=== PATIENT | female | born 1980 | race Caucasian/White ===

== ENCOUNTER 2021-07-23 13:18 | Inpatient (IN) | payer SELFPAY ==
[2021-07-23] MEDS ORDERED: SODIUM CHLORIDE 0.9% 1000 ML IV SOLN IV ONE (13:37)
[2021-07-23] MEDS ORDERED: IBUPROFEN 800 MG TAB PO ONE (13:39)
--- NOTE | 2021-07-23 13:39 | Event Note ---
ED Screening Note ED Screening Note: COUGH FEVER PMH NONE RX NONE NO COVID IMMUNIZATION NO FLU SHOT This initial assessment/diagnostic orders/clinical plan/treatment(s) is/are subject to change based on patients health status, clinical progression and re- assessment by fellow clinical providers in the ED. Further treatment and workup at subsequent clinical providers discretion. Patient/guardian urged not to elope from the ED as their condition may be serious if not clinically assessed and managed. Initial orders include: RO COVID - FLU
[2021-07-23 14:02] LABS: Basophils % (Auto) 0.4 % (0.0-1.8); Hematocrit 41.5 % (30.3-42.9); Lymphocytes # (Auto) 0.8 K/mm3 (1.2-5.4); Lymphocytes % (Auto) 25.9 % (13.4-35.0); Mean Corpuscular HGB Conc 34 % (30-34); Mean Corpuscular Volume 88 fl (79-97); Monocytes # (Auto) 0.1 K/mm3 (0.0-0.8); Monocytes % (Auto) 4.9 % (0.0-7.3); Platelet Count 185 K/mm3 (140-440); Red Blood Count 4.73 M/mm3 (3.65-5.03); Red Cell Distribution Width 13.2 % (13.2-15.2)
[2021-07-23 14:26] LABS: Alanine Aminotransferase 33 units/L (7-56); Albumin 3.8 g/dL (3.9-5); Blood Urea Nitrogen 5 mg/dL (7-17); Calcium 8.5 mg/dL (8.4-10.2); Hemolysis Index 11
[2021-07-23 14:30] LABS: BUN/Creatinine Ratio 10
[2021-07-23 14:50] LABS: Bilirubin,Urine NEG (Negative); Blood,Urine NEG (Negative); Color,Urine Yellow (Yellow); Hyaline Casts,Urine 2 /LPF; Mucus,Urine FEW /HPF; Urobilinogen,Urine < 2.0 mg/dL (<2.0); WBC,Urine < 1.0 /HPF (0.0-6.0)
--- NOTE | 2021-07-23 15:06 | XRay Report ---
CHEST 2 VIEWS INDICATION: SOB. COMPARISON: None FINDINGS: Support devices: None. Heart: Within normal limits. Lungs/pleura: Moderate diffuse bilateral lung opacities are identified. No pleural effusion or pneum othorax. Additional findings: None. IMPRESSION: Moderate bilateral pulmonary opacities concerning for atypical pneumonia or viral infection. Signer Name: Khoa Patel Jr, MD Signed: 07/23/2021 3:01 PM Workstation Name: [id number]
--- NOTE | 2021-07-23 15:46 | Emergency Department Report ---
ED General Adult HPI - General Chief complaint: Fever Stated complaint: DIFFICULTY BREATING Time Seen by Provider: 07/23/21 13:37 Source: patient, family Mode of arrival: Ambulatory Limitations: Language Barrier - History of Present Illness Initial comments: 41-year-old female with past medical history of hypertension diagnosed with COVID 10 days ago presents emerged department complaining of a 7-day history of progressive worsening shortness of breath, chills, coryza, presyncope coughing with mucus production and diarrhea the last couple days. She has been highly treated self with fluids and Pedialyte, Gatorade, [id number] Tyleno l and and Motrin but states when she was diagnosed with COVID no further medication was was provided. She is continuing to worsen since since the onset Severity scale (0 -10): 7 - Related Data Allergies Allergy/AdvReac Type Severity Reaction Status Date / Time No Known Allergies Allergy Verified 07/23/21 13:24 ED Review of Systems ROS: Stated complaint: DIFFICULTY BREATING Other details as noted in HPI Comment: All other systems reviewed and negative ED Physical Exam - General Limitations: Language Barrier General appearance: alert, lethargic - Head Head exam: Present: atraumatic, normocephalic - Eye Eye exam: Present: normal appearance - ENT ENT exam: Present: normal exam, normal orophraynx, mucous membranes moist - Neck Neck exam: Present: normal inspection - Respiratory Respiratory exam: Present: normal lung sounds bilaterally, respiratory distress, rhonchi. Absent: wheezes, rales - Cardiovascular Cardiovascular Exam: Present: normal rhythm, tachycardia. Absent: systolic murmur, diastolic murmur, rubs, gallop - GI/Abdominal GI/Abdominal exam: Present: soft, normal bowel sounds. Absent: tenderness, guarding - Extremities Exam Extremities exam: Present: normal inspection - Back Exam Back exam: Present: normal inspection - Neurological Exam Neurological exam: Present: alert, oriented X3 - Psychiatric Psychiatric exam: Present: normal affect, normal mood - Skin Skin exam: Present: warm, dry, intact, normal color. Absent: rash ED Course Vital Signs 07/23/21 13:19 Temperature 101.9 F H Pulse Rate 115 H Respiratory 20 Rate Blood Pressure 140/78 [Left] O2 Sat by Pulse 94 Oximetry - Consultations Consultation #1: 07/23/21 17:56 Case discussed with attending who is aware of the findings on examination and CT scan. Plan is to admit for further evaluation and treatment. Consultation #2: 07/23/21 17:56 Case discussed with hospitalist Dr. Jocelyn Schultz who is aware of the findings on examination and CT scans plan is to admit to [facility] per his recommendation ED Medical Decision Making - Lab Data Result diagrams: 07/23/21 13:43 07/23/21 13:43 - Radiology Data Radiology results: report reviewed [facility] [address] [place] [address] Cat Scan Report Signed Patient: MARTA MELÉNDEZ R#: [id number] : 1980 Acct:[id number] Age/Sex: 41 / F ADM Date: 07/23/21 Loc: ED Attending Dr: Ordering Physician: RAMYA MCKEON Date of Service: 07/23/21 Procedure(s): CT angio chest Accession Number(s): [id number] cc: RAMYA MCKEON CTA CHEST WITH CONTRAST INDICATION / CLINICAL INFORMATION: CP/SOB. TECHNIQUE: Axial CT images were obtained through the chest after injection of 100 cc of Omnipaque 350 IV contrast. 3 plane MIP and/or 3D reconstructions were produced. All CT scans at this location are performed using CT dose reduction for ALARA by means of automated exposure control. COMPARISON: Same day chest radiograph FINDINGS: PULMONARY ARTERIES: No central or segmental pulmonary embolus. THORACIC AORTA: No significant abnormality. HEART: No significant abnormality. ADENOPATHY: No significant adenopathy. LUNGS/PLEURA: Moderate patchy bilateral airspace consolidation, most pronounced within the right upper lobe. Trace bibasilar pleural effusions. No pneumothorax. ADDITIONAL FINDINGS: Small sliding-type hiatal hernia. UPPER ABDOMEN: No acute findings. SKELETAL STRUCTURES: No significant osseous abnormality. IMPRESSION: 1. No evidence of central or segmental pulmonary embolism. 2. Moderate patchy bilateral airspace consolidation, most consistent with multifocal pneumonia. Signer Name: Magdi Salter MD Signed: 07/23/2021 5:32 PM Workstation Name: [id number] Transcribed By: JS Dictated By: MAGDI SALTER MD Electronically Authenticated By: MAGDI SALTER MD Signed Date/Time: 07/23/211731 DD/ 28 TD/TT: Print Cancel - Medical Decision Making This patient presents to the emergency department with fever and lower respiratory symptoms concerning for viral syndrome including flu and COVID-19. Patient has documented COVID-19 10 days ago and currently has a pneumonia which is suspicious to be secondary toCOVID-19 infection. Differential diagnosis includes other viral causes of lower respiratory symptoms, asthma, bronchitis. Patient has progressive symptoms and concerning vital signs as well as desaturation down to 88 with ambulation and worsening symptoms of shortness of breath and the addition of presyncope for this reason it is in the best interest for admission for further evaluation and treatment of the pneumonia Critical care attestation.: If time is entered above; I have spent that time in minutes in the direct care of this critically ill patient, excluding procedure time. ED Disposition Clinical Impression: Bilateral upper lobe community acquired pneumonia, Hypoxemia Disposition: ADMITTED INPATIENT Is pt being admited?: Yes Does the pt Need Aspirin: No Condition: Stable Instructions: Bacterial Pneumonia (ED)
--- NOTE | 2021-07-23 17:36 | Cat Scan Report ---
CTA CHEST WITH CONTRAST INDICATION / CLINICAL INFORMATION: CP/SOB. TECHNIQUE: Axial CT images were obtained through the chest after injection of 100 cc of Omnipaque 350 IV contrast. 3 plane MIP and/or 3D reconstructions were produced. All CT scans at this location are performed using CT dose reduction for ALARA by means of automated exposure control. COMPARISON: Same day chest radiograph FINDINGS: PULMONARY ARTERIES: No central or segmental pulmonary embolus. THORACIC AORTA: No significant abnormality. HEART: No significant abnormality. ADENOPATHY: No significant adenopathy. LUNGS/PLEURA: Moderate patchy bilateral airspace consolidation, most pronounced within the right uppe r lobe. Trace bibasilar pleural effusions. No pneumothorax. ADDITIONAL FINDINGS: Small sliding-type hiatal hernia. UPPER ABDOMEN: No acute findings. SKELETAL STRUCTURES: No significant osseous abnormality. IMPRESSION: 1. No evidence of central or segmental pulmonary embolism. 2. Moderate patchy bilateral airspace consolidation, most consistent with multifocal pneumonia. Signer Name: Huang Salter MD Signed: 07/23/2021 5:32 PM Workstation Name: [id number]
[2021-07-23] MEDS ORDERED: dexAMETHasone 4 MG/ML VIAL IV ONE (17:49)
[2021-07-23] MEDS ORDERED: AZITHROMYCIN/NS 500 MG/250 ML 500 MG/250 ML BAG IV ONE (17:49)
[2021-07-23] MEDS ORDERED: cefTRIAXone/NS 1 GM/50 ML 1 GM/50 ML BAG IV ONE (17:49)
[2021-07-23] MEDS: SODIUM CHLORIDE 0.9% 1000 ML 1,000 ML IV SCH (18:25)
[2021-07-23 18:32] LABS: C-Reactive Protein 8.1 mg/dL (0.00-1.30)
--- NOTE | 2021-07-23 22:23 | History and Physical Report ---
History of Present Illness Date of examination: 07/23/21 Date of admission: 07/23/21 17:51 Chief complaint: Shortness of breath for 1 week History of present illness: 41-year-old female with past medical history of hypertension comes in for 7-day history of progressive worsening shortness of breath, chills, coughing with mucus production and diarrhea. Patient apparently tested positive for Covid 10 days ago but was being treated as outpatient with Gatorade and Tylenol. After she was diagnosed with Covid no further medications were provided. Her oxygen saturations were apparently okay. In the emergency room her saturations were intermittently dropping from 94-80 on room air. With exertion patient oxygen saturations were dropping down consistently to low 80s. No non-small. No loss of taste. Patient is unvaccinated. Past History Past Medical History: hypertension Past Surgical History: No surgical history Social history: lives with family, full code Family history: hypertension Medications and Allergies Allergies Allergy/AdvReac Type Severity Reaction Status Date / Time No Known Allergies Allergy Verified 07/23/21 13:24 Active Meds: Active Medications Sodium Chloride (Nacl 0.9% 1000 Ml) 1,000 mls @ 125 mls/hr IV DIRECT RUSSEL Last Admin: 07/23/21 18:25 Dose: 125 mls/hr Documented by: Review of Systems All systems: negative Constitutional: fever, chills, sweats, poor appetite, no weight loss, no weight gain Ears, nose, mouth and throat: nasal congestion, no ear discharge, no tinnitis, no decreased hearing, no nose pain Breasts: deferred Cardiovascular: shortness of breath, dyspnea on exertion, no chest pain, no orthopnea, no palpitations Respiratory: dyspnea on exertion, congestion Gastrointestinal: diarrhea, no abdominal pain, no nausea, no vomiting Genitourinary Female: no dysuria, no urinary frequency Menstruation: currently menstrual Rectal: no pain Musculoskeletal: no neck stiffness, no neck pain, no shooting arm pain Integumentary: no rash, no pruritis, no redness, no sores, no jaundice, no boils Neurological: no tingling, no seizures, no syncope Psychiatric: anxiety, no memory loss, no change in sleep habits, no sleep disturbances, no insomnia Endocrine: no cold intolerance, no heat intolerance, no polyphagia, no excessive thirst Hematologic/Lymphatic: no easy bruising, no easy bleeding Allergic/Immunologic: no urticaria, no allergic rhinitis, no wheezing Exam - Constitutional Vitals: Temp Pulse Resp BP Pulse Ox 99.0 F 88 21 144/75 94 07/23/21 20:53 07/23/21 22:09 07/23/21 22:09 07/23/21 20:53 07/23/21 22:09 General appearance: Present: no acute distress, well-nourished - EENT Eyes: Present: PERRL ENT: hearing intact, clear oral mucosa - Neck Neck: Present: supple, normal ROM - Respiratory Respiratory effort: normal Respiratory: bilateral: CTA, rhonchi (Scattered) - Cardiovascular Heart rate: 98 Rhythm: regular Heart Sounds: Present: S1 & S2. Absent: rub, click - Extremities Extremities: pulses symmetrical, No edema Peripheral Pulses: within normal limits - Abdominal General gastrointestinal: Present: soft, non-tender, non-distended, normal bowel sounds Female genitourinary: Present: normal - Integumentary Integumentary: Present: clear, warm, dry - Musculoskeletal Musculoskeletal: gait normal, strength equal bilaterally - Psychiatric Psychiatric: appropriate mood/affect, intact judgment & insight - Neurologic Neurologic: CNII-XII intact, moves all extremities Results - Labs CBC & Chem 7: 07/24/21 04:44 07/24/21 04:44 Labs: Laboratory Last Values WBC 3.1 K/mm3 (4.5-11.0) L 07/23/21 13:43 RBC 4.73 M/mm3 (3.65-5.03) 07/23/21 13:43 Hgb 14.0 gm/dl (10.1-14.3) 07/23/21 13:43 Hct 41.5 % (30.3-42.9) 07/23/21 13:43 MCV 88 fl (79-97) 07/23/21 13:43 MCH 30 pg (28-32) 07/23/21 13:43 MCHC 34 % (30-34) 07/23/21 13:43 RDW 13.2 % (13.2-15.2) 07/23/21 13:43 Plt Count 185 K/mm3 (140-440) 07/23/21 13:43 Lymph % (Auto) 25.9 % (13.4-35.0) 07/23/21 13:43 Hendricks % (Auto) 4.9 % (0.0-7.3) 07/23/21 13:43 Eos % (Auto) 0.0 % (0.0-4.3) 07/23/21 13:43 Baso % (Auto) 0.4 % (0.0-1.8) 07/23/21 13:43 Lymph # (Auto) 0.8 K/mm3 (1.2-5.4) L 07/23/21 13:43 Hendricks # (Auto) 0.1 K/mm3 (0.0-0.8) 07/23/21 13:43 Eos # (Auto) 0.0 K/mm3 (0.0-0.4) 07/23/21 13:43 Baso # (Auto) 0.0 K/mm3 (0.0-0.1) 07/23/21 13:43 Seg Neutrophils % 68.8 % (40.0-70.0) 07/23/21 13:43 Seg Neutrophils # 2.1 K/mm3 (1.8-7.7) 07/23/21 13:43 D-Dimer 327.80 ng/mlDDU (0-234) H 07/23/21 13:43 Sodium 132 mmol/L (137-145) L 07/23/21 13:43 Potassium 4.0 mmol/L (3.6-5.0) 07/23/21 13:43 Chloride 97.0 mmol/L (98-107) L 07/23/21 13:43 Carbon Dioxide 24 mmol/L (22-30) 07/23/21 13:43 Anion Gap 15 mmol/L 07/23/21 13:43 BUN 5 mg/dL (7-17) L 07/23/21 13:43 Creatinine 0.5 mg/dL (0.6-1.2) L 07/23/21 13:43 Estimated GFR > 60 ml/min 07/23/21 13:43 BUN/Creatinine Ratio 10 % 07/23/21 13:43 Glucose 109 mg/dL (65-100) H 07/23/21 17:56 Lactic Acid 1.40 mmol/L (0.7-2.0) 07/23/21 13:43 Calcium 8.5 mg/dL (8.4-10.2) 07/23/21 13:43 Ferritin 557.3 ng/mL (10.0-200.0) H 07/23/21 17:56 Total Bilirubin < 0.20 mg/dL (0.1-1.2) 07/23/21 13:43 AST 27 units/L (5-40) 07/23/21 13:43 ALT 33 units/L (7-56) 07/23/21 13:43 Alkaline Phosphatase 90 units/L (35-129) 07/23/21 13:43 Lactate Dehydrogenase 264 units/L (91-180) H 07/23/21 17:56 C-Reactive Protein 8.10 mg/dL (0.00-1.30) H 07/23/21 17:56 Total Protein 7.3 g/dL (6.3-8.2) 07/23/21 13:43 Albumin 3.8 g/dL (3.9-5) L 07/23/21 13:43 Albumin/Globulin Ratio 1.1 % 07/23/21 13:43 Urine Color Yellow (Yellow) 07/23/21 Unknown Urine Turbidity Clear (Clear) 07/23/21 Unknown Urine pH 8.0 (5.0-7.0) H 07/23/21 Unknown Ur Specific Dendron 1.010 (1.003-1.030) 07/23/21 Unknown Urine Protein 30 mg/dl mg/dL (Negative) 07/23/21 Unknown Urine Glucose (UA) Neg mg/dL (Negative) 07/23/21 Unknown Urine Ketones Neg mg/dL (Negative) 07/23/21 Unknown Urine Blood Neg (Negative) 07/23/21 Unknown Urine Nitrite Neg (Negative) 07/23/21 Unknown Urine Bilirubin Neg (Negative) 07/23/21 Unknown Urine Urobilinogen < 2.0 mg/dL (<2.0) 07/23/21 Unknown Ur Leukocyte Esterase Neg (Negative) 07/23/21 Unknown Urine WBC (Auto) < 1.0 /HPF (0.0-6.0) 07/23/21 Unknown Urine RBC (Auto) 7.0 /HPF (0.0-6.0) 07/23/21 Unknown U Epithel Cells (Auto) 3.0 /HPF (0-13.0) 07/23/21 Unknown Hyaline Casts 2 /LPF 07/23/21 Unknown Urine Mucus Few /HPF 07/23/21 Unknown Short CBC 07/23/21 Range/Units 13:43 WBC 3.1 L (4.5-11.0) K/mm3 Hgb 14.0 (10.1-14.3) gm/dl Hct 41.5 (30.3-42.9) % Plt Count 185 (140-440) K/mm3 [facility] 07/23/21 07/23/21 13:43 17:56 Sodium 132 L Potassium 4.0 Chloride 97.0 L Carbon Dioxide 24 BUN 5 L Creatinine 0.5 L Glucose 120 H 109 H Calcium 8.5 Liver Function 07/23/21 Range/Units 13:43 Total Bilirubin < 0.20 (0.1-1.2) mg/dL AST 27 (5-40) units/L ALT 33 (7-56) units/L Alkaline Phosphatase 90 (35-129) units/L Albumin 3.8 L (3.9-5) g/dL Urine 07/23/21 Range/Units Unknown Urine Color Yellow (Yellow) Urine pH 8.0 H (5.0-7.0) Ur Specific Dendron 1.010 (1.003-1.030) Urine Protein 30 mg/dl (Negative) mg/dL Urine Glucose (UA) Neg (Negative) mg/dL Short CBC 07/23/21 07/24/21 Range/Units 13:43 04:44 WBC 3.1 L 2.8 L (4.5-11.0) K/mm3 Hgb 14.0 12.7 (10.1-14.3) gm/dl Hct 41.5 38.0 (30.3-42.9) % Plt Count 185 189 (140-440) K/mm3 [facility] 07/23/21 07/23/21 07/24/21 13:43 17:56 04:44 Sodium 132 L 139 D Potassium 4.0 4.4 Chloride 97.0 L 104.0 Carbon Dioxide 24 23 BUN 5 L 6 L Creatinine 0.5 L 0.6 Glucose 120 H 109 H 152 H Calcium 8.5 8.6 Liver Function 07/23/21 07/24/21 Range/Units 13:43 04:44 Total Bilirubin < 0.20 < 0.20 (0.1-1.2) mg/dL AST 27 25 (5-40) units/L ALT 33 28 (7-56) units/L Alkaline Phosphatase 90 81 (35-129) units/L Albumin 3.8 L 3.4 L (3.9-5) g/dL Urine 07/23/21 Range/Units Unknown Urine Color Yellow (Yellow) Urine pH 8.0 H (5.0-7.0) Ur Specific Dendron 1.010 (1.003-1.030) Urine Protein 30 mg/dl (Negative) mg/dL Urine Glucose (UA) Neg (Negative) mg/dL Microbiology: Microbiology 07/23/21 13:43 Peripheral/Venous Blood Culture - Preliminary Culture in Progress 07/23/21 13:43 Peripheral/Venous Blood Culture - Preliminary Culture in Progress - Imaging and Cardiology Chest x-ray: report reviewed CT scan - chest: report reviewed Imaging and Cardiology: Chest x-ray Moderate bilateral pulmonary opacities concerning for atypical pneumonia or viral infection CT angiogram No evidence of central or segmental pulmonary embolism Moderate patchy bilateral airspace consolidation most consistent with multifocal pneumonia Assessment and Plan Advance Directives: Yes (Full code) VTE prophylaxis?: Chemical Plan of care discussed with patient/family: Yes - Patient Problems (1) Acute respiratory failure with hypoxia Current Visit: Yes Status: Acute Plan to address problem: Patient is hypoxic at rest and with ambulation Oxygen saturations averaging 85% Improved with 4 L of nasal cannula oxygen to 94 Respiratory therapist to adjust oxygen levels to keep it above 92 IV Decadron initiated Coronavirus PCR requested (2) SIRS (systemic inflammatory response syndrome) Current Visit: Yes Status: Acute Plan to address problem: All inflammatory markers including D-dimer and CRP LDH and ferritin are high Consistent with systemic inflammatory response syndrome (3) Bilateral pneumonia Current Visit: Yes Status: Acute Plan to address problem: Treat as community-acquired pneumonia with IV azithromycin and Ceftin. We Will Discontinue If Procalcitonin Is Normal. (4) Pneumonia due to COVID-19 virus Current Visit: Yes Status: Acute Plan to address problem: Treat as Covid pneumonia. Patient initiated on IV Decadron 8 mg every 24. IV remdesivir if necessary Will defer to ID consultation (5) Hypertension Current Visit: Yes Status: Chronic Qualifiers: Hypertension type: primary hypertension Qualified Code(s): I10 - Essential (primary) hypertension Plan to address problem: Patient states she has high blood pressure but she is not on any medication BP is trending in normal range. Will initiate blood pressure medications if necessary (6) DVT prophylaxis Current Visit: Yes Status: Acute Plan to address problem: On Lovenox and GI prophylaxis
[2021-07-23] MEDS ORDERED: ONDANSETRON 4 MG/2 ML INJ IV PRN (22:24)
[2021-07-23] MEDS ORDERED: NALOXONE 0.4 MG/1 ML INJ IV PRN (22:24)
[2021-07-23] MEDS ORDERED: METOCLOPRAMIDE 10 MG/2 ML INJ IV PRN (22:24)
[2021-07-23] MEDS ORDERED: HYDROmorphone 1 MG/1 ML INJ IV PRN (22:24)
[2021-07-23] MEDS: ENOXAPARIN 40 MG/0.4 ML INJ SUB-Q SCH (23:12)
[2021-07-23] MEDS: FAMOTIDINE 20 MG/2 ML INJ IV SCH (23:13)
[2021-07-24 05:10] LABS: Basophils % (Auto) 0.2 % (0.0-1.8); Hemoglobin 12.7 gm/dl (10.1-14.3); Lymphocytes # (Auto) 0.6 K/mm3 (1.2-5.4); Lymphocytes % (Auto) 20.8 % (13.4-35.0); Mean Corpuscular HGB Conc 34 % (30-34); Mean Corpuscular Volume 89 fl (79-97); Monocytes # (Auto) 0.1 K/mm3 (0.0-0.8); Monocytes % (Auto) 3.4 % (0.0-7.3); Platelet Count 189 K/mm3 (140-440); Red Blood Count 4.27 M/mm3 (3.65-5.03); Red Cell Distribution Width 13.3 % (13.2-15.2)
[2021-07-24 05:36] LABS: Alanine Aminotransferase 28 units/L (7-56); Albumin 3.4 g/dL (3.9-5); Blood Urea Nitrogen 6 mg/dL (7-17); Calcium 8.6 mg/dL (8.4-10.2); Hemolysis Index 7
[2021-07-24 05:40] LABS: ABG Methemoglobin 0.6 % (0.0-1.5); ABG Oxygen Saturation 94.3 % (95.0-99.0); ABG PCO2 36.9 mm Hg; ABG PH 7.431 pH Units (7.350-7.450)
[2021-07-24 05:42] LABS: BUN/Creatinine Ratio 10
[2021-07-24] MEDS: oxyCODONE /ACETAMINOPHEN 5-325MG TAB PO PRN (06:13)
[2021-07-24] MEDS: cefTRIAXone/NS 2 GM/100 ML 2 GM/100 ML BAG IV SCH (09:34)
[2021-07-24] MEDS: FAMOTIDINE 20 MG/2 ML INJ IV SCH (09:34)
[2021-07-24] MEDS: AZITHROMYCIN/NS 500 MG/250 ML 500 MG/250 ML BAG IV SCH (09:34)
[2021-07-24] MEDS: dexAMETHasone 4 MG/ML VIAL IV SCH (09:34)
[2021-07-24] MEDS ORDERED: ENOXAPARIN 40 MG/0.4 ML INJ SUB-Q SCH (10:00)
[2021-07-24] MEDS ORDERED: dexAMETHasone 4 MG/ML VIAL IV SCH (10:00)
[2021-07-24] MEDS ORDERED: HEPARIN 5,000 UNIT/1 ML VIAL SUB-Q SCH (10:00)
--- NOTE | 2021-07-24 14:30 | Progress Note ---
Assessment and Plan Assessment and plan: 41-year-old female with past medical history of hypertension comes in for 7-day history of progressive worsening shortness of breath, chills, coughing with mucus production and diarrhea secondary to previously diagnosed COVID-19 approximately 10 days ago. #COVID-19 pneumonia #Acute hypoxic respiratory failure #Possible community-acquired pneumonia #COVID-19 counseling -Patient currently on 4 L nasal cannula with saturations at 93% (goal >92). Continue to wean as tolerated. -Pending coronavirus PCR -Continue IV Decadron 6 mg daily x10 days (ends 08/02/2021) -Elevated D-dimer, CRP, LDH, and ferritin, which are consistent with SIRS. Follow labs every 2-3 days. -Continue IV azithromycin and ceftriaxone (ends 07/26/2021). Can discontinue earlier if procalcitonin is within normal limits. -Infectious disease consulted for possible remdesivir administration. Appreciate recs. -Counseled patient on importance of vaccination of family members. Patient expr essed understanding. 3 other family members have COVID 19 with symptoms (husbandhospitalized, fatherhospitalized and discharged, and mother at home). -Time: +20 minutes #Hypertension -Blood pressure currently normotensive. Patient not taking antihypertensives at home. -Consider starting antihypertensives if blood pressure becomes elevated. Continue to monitor. #GERD -Continue IV PPI. Continue to monitor Disposition Plan: Continue medical management Total Time Spent with Patient (Minutes): 45 minutes History Interval history: No acute events overnight. Hospitalist Physical - Constitutional Vitals: Temp Pulse Resp BP Pulse Ox 98.5 F 80 22 114/71 91 07/24/21 11:46 07/24/21 11:46 07/24/21 11:46 07/24/21 11:46 07/24/21 14:12 General appearance: Present: no acute distress, well-nourished - EENT Eyes: Present: PERRL, EOM intact ENT: hearing intact, clear oral mucosa, dentition normal - Neck Neck: Present: supple, normal ROM - Respiratory Respiratory effort: normal, labored Respiratory: bilateral: CTA - Cardiovascular Rhythm: regular Heart Sounds: Present: S1 & S2 - Extremities Extremities: no ischemia, pulses intact, pulses symmetrical, No edema, normal temperature, normal color Peripheral Pulses: within normal limits - Abdominal General gastrointestinal: soft, non-tender, non-distended, normal bowel sounds - Integumentary Integumentary: Present: clear, warm, dry - Psychiatric Psychiatric: appropriate mood/affect, memory intact, cooperative - Neurologic Neurologic: CNII-XII intact, moves all extremities - Allied Health Allied health notes reviewed: nursing Results - Labs CBC & Chem 7: 07/24/21 04:44 07/24/21 04:44 Labs: Laboratory Last Values WBC 2.8 K/mm3 (4.5-11.0) L 07/24/21 04:44 RBC 4.27 M/mm3 (3.65-5.03) 07/24/21 04:44 Hgb 12.7 gm/dl (10.1-14.3) 07/24/21 04:44 Hct 38.0 % (30.3-42.9) 07/24/21 04:44 MCV 89 fl (79-97) 07/24/21 04:44 MCH 30 pg (28-32) 07/24/21 04:44 MCHC 34 % (30-34) 07/24/21 04:44 RDW 13.3 % (13.2-15.2) 07/24/21 04:44 Plt Count 189 K/mm3 (140-440) 07/24/21 04:44 Lymph % (Auto) 20.8 % (13.4-35.0) 07/24/21 04:44 [place] % (Auto) 3.4 % (0.0-7.3) 07/24/21 04:44 Eos % (Auto) 0.0 % (0.0-4.3) 07/24/21 04:44 Baso % (Auto) 0.2 % (0.0-1.8) 07/24/21 04:44 Lymph # (Auto) 0.6 K/mm3 (1.2-5.4) L 07/24/21 04:44 [place] # (Auto) 0.1 K/mm3 (0.0-0.8) 07/24/21 04:44 Eos # (Auto) 0.0 K/mm3 (0.0-0.4) 07/24/21 04:44 Baso # (Auto) 0.0 K/mm3 (0.0-0.1) 07/24/21 04:44 Seg Neutrophils % 75.6 % (40.0-70.0) H 07/24/21 04:44 Seg Neutrophils # 2.1 K/mm3 (1.8-7.7) 07/24/21 04:44 D-Dimer 327.80 ng/mlDDU (0-234) H 07/23/21 13:43 ABG pH 7.431 pH Units (7.350-7.450) 07/24/21 Unknown ABG pCO2 36.9 mm Hg 07/24/21 Unknown ABG pO2 64.0 mm Hg (80.0-90.0) L 07/24/21 Unknown ABG HCO3 24.0 mmol/L (20.0-26.0) 07/24/21 Unknown ABG O2 Saturation 94.3 % (95.0-99.0) L 07/24/21 Unknown ABG O2 Content 17.4 (0.0-44) 07/24/21 Unknown ABG Base Excess 0.0 mmol/L (-2.0-3.0) 07/24/21 Unknown ABG Hemoglobin 13.3 gm/dl (12.0-16.0) 07/24/21 Unknown ABG Carboxyhemoglobin 1.0 % (0.0-5.0) 07/24/21 Unknown ABG Methemoglobin 0.6 % (0.0-1.5) 07/24/21 Unknown Oxyhemoglobin 92.7 % (95.0-99.0) L 07/24/21 Unknown FiO2 32 % 07/24/21 Unknown Sodium 139 mmol/L (137-145) D 07/24/21 04:44 Potassium 4.4 mmol/L (3.6-5.0) 07/24/21 04:44 Chloride 104.0 mmol/L (98-107) 07/24/21 04:44 Carbon Dioxide 23 mmol/L (22-30) 07/24/21 04:44 Anion Gap 16 mmol/L 07/24/21 04:44 BUN 6 mg/dL (7-17) L 07/24/21 04:44 Creatinine 0.6 mg/dL (0.6-1.2) 07/24/21 04:44 Estimated GFR > 60 ml/min 07/24/21 04:44 BUN/Creatinine Ratio 10 % 07/24/21 04:44 Glucose 152 mg/dL (65-100) H 07/24/21 04:44 Lactic Acid 1.40 mmol/L (0.7-2.0) 07/23/21 13:43 Calcium 8.6 mg/dL (8.4-10.2) 07/24/21 04:44 Ferritin 557.3 ng/mL (10.0-200.0) H 07/23/21 17:56 Total Bilirubin < 0.20 mg/dL (0.1-1.2) 07/24/21 04:44 AST 25 units/L (5-40) 07/24/21 04:44 ALT 28 units/L (7-56) 07/24/21 04:44 Alkaline Phosphatase 81 units/L (35-129) 07/24/21 04:44 Lactate Dehydrogenase 264 units/L (91-180) H 07/23/21 17:56 C-Reactive Protein 8.10 mg/dL (0.00-1.30) H 07/23/21 17:56 Total Protein 6.7 g/dL (6.3-8.2) 07/24/21 04:44 Albumin 3.4 g/dL (3.9-5) L 07/24/21 04:44 Albumin/Globulin Ratio 1.0 % 07/24/21 04:44 Urine Color Yellow (Yellow) 07/23/21 Unknown Urine Turbidity Clear (Clear) 07/23/21 Unknown Urine pH 8.0 (5.0-7.0) H 07/23/21 Unknown Ur Specific [place] 1.010 (1.003-1.030) 07/23/21 Unknown Urine Protein 30 mg/dl mg/dL (Negative) 07/23/21 Unknown Urine Glucose (UA) Neg mg/dL (Negative) 07/23/21 Unknown Urine Ketones Neg mg/dL (Negative) 07/23/21 Unknown Urine Blood Neg (Negative) 07/23/21 Unknown Urine Nitrite Neg (Negative) 07/23/21 Unknown Urine Bilirubin Neg (Negative) 07/23/21 Unknown Urine Urobilinogen < 2.0 mg/dL (<2.0) 07/23/21 Unknown Ur Leukocyte Esterase Neg (Negative) 07/23/21 Unknown Urine WBC (Auto) < 1.0 /HPF (0.0-6.0) 07/23/21 Unknown Urine RBC (Auto) 7.0 /HPF (0.0-6.0) 07/23/21 Unknown U Epithel Cells (Auto) 3.0 /HPF (0-13.0) 07/23/21 Unknown Hyaline Casts 2 /LPF 07/23/21 Unknown Urine Mucus Few /HPF 07/23/21 Unknown Coronavirus (PCR) Positive (Negative) A 07/24/21 07:55 Microbiology: Microbiology 07/23/21 13:43 Peripheral/Venous Blood Culture - Preliminary NO GROWTH AFTER 24 HOURS 07/23/21 13:43 Peripheral/Venous Blood Culture - Preliminary NO GROWTH AFTER 24 HOURS Active Medications - Current Medications Current Medications: Generic Name Dose Route Start Last Admin Trade Name Freq PRN Reason Stop Dose Admin Acetaminophen 650 mg 07/23/21 22:24 Acetaminophen 325 Mg Tab PO Q4H PRN Pain MILD(1-3)/Fever >100.5/GONZALES Dexamethasone 6 mg 07/24/21 10:00 07/24/21 09:34 Dexamethasone 4 Mg/Ml Vial IV 08/01/21 10:01 6 mg Q24HR RUSSEL Administration Enoxaparin Sodium 40 mg 07/23/21 22:00 07/23/21 23:12 Enoxaparin 40 Mg/0.4 Ml Inj SUB-Q 40 mg QDAY@2200 RUSSEL Administration Protocol Famotidine 20 mg 07/24/21 22:00 Famotidine 20 Mg Tab PO BID RUSSEL Hydromorphone HCl 0.5 mg 07/23/21 22:24 Hydromorphone 1 Mg/1 Ml Inj IV Q3H PRN Pain , Severe (7-10) Sodium Chloride 1,000 mls @ 125 mls/hr 07/23/21 18:00 07/23/21 18:25 Nacl 0.9% 1000 Ml IV 125 mls/hr DIRECT RUSSEL Administration Azithromycin 500 mg in 250 mls @ 250 mls/hr 07/24/21 10:00 07/24/21 09:34 Zithromax/Ns IV 07/27/21 10:59 250 mls/hr Q24HR RUSSEL Administration Ceftriaxone Sodium 2 gm in 100 mls @ 200 mls/hr 07/24/21 10:00 07/24/21 09:34 Rocephin/Ns 2 Gm/100 Ml IV 07/27/21 10:29 200 mls/hr Q24HR RUSSEL Administration Protocol Metoclopramide HCl 10 mg 07/23/21 22:24 Metoclopramide 10 Mg/2 Ml Inj IV Q6H PRN Nausea And Vomiting Naloxone HCl 0.1 mg 07/23/21 22:24 Naloxone 0.4 Mg/1 Ml Inj IV Q2MIN PRN Res Rate </= 8 or 02 SAT < 92% Ondansetron HCl 4 mg 07/23/21 22:24 Ondansetron 4 Mg/2 Ml Inj IV Q8H PRN Nausea And Vomiting Oxycodone/Acetaminophen 1 tab 07/23/21 22:24 07/24/21 06:13 Oxycodone /Acetaminophen 5-325mg Tab PO 1 tab Q6H PRN Administration Pain, Moderate (4-6) Sodium Chloride 10 ml 07/24/21 10:00 07/24/21 09:51 Sodium Chloride 0.9% 10 Ml Flush Syringe IV Not Given BID RUSSEL Sodium Chloride 10 ml 07/23/21 22:24 Sodium Chloride 0.9% 10 Ml Flush Syringe IV PRN PRN LINE FLUSH
[2021-07-24] MEDS: SODIUM CHLORIDE 0.9% 1000 ML 1,000 ML IV SCH (19:03)
[2021-07-24] MEDS: ENOXAPARIN 40 MG/0.4 ML INJ SUB-Q SCH (21:40)
[2021-07-24] MEDS: FAMOTIDINE 20 MG TAB PO SCH (21:40)
[2021-07-24] MEDS: ACETAMINOPHEN 325 MG TAB PO PRN (22:19)
[2021-07-25] MEDS: SODIUM CHLORIDE 0.9% 1000 ML 1,000 ML IV SCH ×2 (05:43→15:12)
[2021-07-25 06:22] LABS: Basophils % (Auto) 0.1 % (0.0-1.8); Hematocrit 36.8 % (30.3-42.9); Hemoglobin 12.4 gm/dl (10.1-14.3); Lymphocytes # (Auto) 1.6 K/mm3 (1.2-5.4); Lymphocytes % (Auto) 18.8 % (13.4-35.0); Mean Corpuscular HGB Conc 34 % (30-34); Mean Corpuscular Volume 88 fl (79-97); Monocytes # (Auto) 0.4 K/mm3 (0.0-0.8); Monocytes % (Auto) 4.7 % (0.0-7.3); Platelet Count 225 K/mm3 (140-440); Red Blood Count 4.21 M/mm3 (3.65-5.03)
[2021-07-25 06:40] LABS: Blood Urea Nitrogen 9 mg/dL (7-17); Calcium 8.3 mg/dL (8.4-10.2); Hemolysis Index 4
[2021-07-25 06:50] LABS: BUN/Creatinine Ratio 23
[2021-07-25] MEDS ORDERED: CALCIUM GLUCONATE 1,000 MG in SODIUM CHLORIDE 0.9% 100 ML IV ONE (08:30)
[2021-07-25] MEDS: AZITHROMYCIN/NS 500 MG/250 ML 500 MG/250 ML BAG IV SCH (09:47)
[2021-07-25] MEDS: FAMOTIDINE 20 MG TAB PO SCH ×2 (09:47→21:33)
[2021-07-25] MEDS: dexAMETHasone 4 MG/ML VIAL IV SCH (09:47)
[2021-07-25] MEDS: ACETAMINOPHEN 325 MG TAB PO PRN ×2 (09:51→18:59)
[2021-07-25] MEDS: cefTRIAXone/NS 2 GM/100 ML 2 GM/100 ML BAG IV SCH (09:51)
--- NOTE | 2021-07-25 11:24 | Consultation ---
History of Present Illness - Reason for Consult Consult date: 07/25/21 - History of Present Illness 41-year-old female past medical history hypertension presented to hospital complaining of shortness of breath. This began approximate 7 days prior to admission has been worsening since onset. She complains of associated cough, chills, diarrhea. Reportedly she tested positive for Covid as an outpatient 10 days prior to admission and was treating herself at home. On presentation the hospital she had intermittent desaturations on room air. She is unvaccinated against Covid. Febrile admission to 101.9 with a white count 8.4. Covid positive. Normal renal function, low procalcitonin. Elevated inflammatory markers. Currently receiving ceftriaxone, azithromycin, dexamethasone. Requiring 10 L salter nasal cannula. Imaging personally reviewed: Chest CTA: No pulmonary embolism. Moderate patchy bilateral airspace consolidations. Review of systems: Deferred to reduce to the risk of transmission of COVID-19 Past History Past Medical History: hypertension Past Surgical History: No surgical history Social history: lives with family, full code Family history: hypertension Medications and Allergies Allergies Allergy/AdvReac Type Severity Reaction Status Date / Time No Known Allergies Allergy Verified 07/23/21 13:24 Home Medications Medication Instructions Recorded Confirmed Last Taken Type No Known Home Medications [No 07/24/21 07/24/21 Unknown History Reported Home Medications] Active Meds: Active Medications Acetaminophen (Acetaminophen 325 Mg Tab) 650 mg PO Q4H PRN PRN Reason: Pain MILD(1-3)/Fever >100.5/GONZALES Last Admin: 07/25/21 09:51 Dose: 650 mg Documented by: Dexamethasone (Dexamethasone 4 Mg/Ml Vial) 6 mg IV Q24HR [facility] Stop: 08/01/21 10:01 Last Admin: 07/25/21 09:47 Dose: 6 mg Documented by: Enoxaparin Sodium (Enoxaparin 40 Mg/0.4 Ml Inj) 40 mg SUB-Q QDAY@2200 RUSSEL; Protocol Last Admin: 07/24/21 21:40 Dose: 40 mg Documented by: Famotidine (Famotidine 20 Mg Tab) 20 mg PO BID RUSSEL Last Admin: 07/25/21 09:47 Dose: 20 mg Documented by: Hydromorphone HCl (Hydromorphone 1 Mg/1 Ml Inj) 0.5 mg IV Q3H PRN PRN Reason: Pain , Severe (7-10) Sodium Chloride (Nacl 0.9% 1000 Ml) 1,000 mls @ 125 mls/hr IV DIRECT [facility] Last Admin: 07/25/21 05:43 Dose: 125 mls/hr Documented by: Azithromycin (Zithromax/Ns) 500 mg in 250 mls @ 250 mls/hr IV Q24HR [facility] Stop: 07/27/21 10:59 Last Admin: 07/25/21 09:47 Dose: 250 mls/hr Documented by: Ceftriaxone Sodium (Rocephin/Ns 2 Gm/100 Ml) 2 gm in 100 mls @ 200 mls/hr IV Q24HR [facility]; Protocol Stop: 07/27/21 10:29 Last Admin: 07/25/21 09:51 Dose: 200 mls/hr Documented by: Metoclopramide HCl (Metoclopramide 10 Mg/2 Ml Inj) 10 mg IV Q6H PRN PRN Reason: Nausea And Vomiting Naloxone HCl (Naloxone 0.4 Mg/1 Ml Inj) 0.1 mg IV Q2MIN PRN PRN Reason: Res Rate </= 8 or 02 SAT < 92% Ondansetron HCl (Ondansetron 4 Mg/2 Ml Inj) 4 mg IV Q8H PRN PRN Reason: Nausea And Vomiting Oxycodone/Acetaminophen (Oxycodone /Acetaminophen 5-325mg Tab) 1 tab PO Q6H PRN PRN Reason: Pain, Moderate (4-6) Last Admin: 07/24/21 06:13 Dose: 1 tab Documented by: Sodium Chloride (Sodium Chloride 0.9% 10 Ml Flush Syringe) 10 ml IV BID [facility] Last Admin: 07/25/21 09:48 Dose: 10 ml Documented by: Sodium Chloride (Sodium Chloride 0.9% 10 Ml Flush Syringe) 10 ml IV PRN PRN PRN Reason: LINE FLUSH Physical Examination - Physical Exam Narrative exam: Physical exam deferred to reduce risk of transmission of COVID-19. Please refer to primary team's note. - Constitutional Vitals: Vital Signs Temp Pulse Resp BP Pulse Ox 98.2 F 69 20 117/71 96 07/25/21 04:00 07/25/21 04:00 07/25/21 04:00 07/25/21 04:00 07/25/21 04:00 Temperature -Last 24 Hours Temperature 98.2 F Temperature 98.5 F Temperature 99.4 F Temperature 98.5 F Results - Labs CBC & Chem 7: 07/25/21 05:32 07/25/21 05:32 Labs: Abnormal lab results 07/24/21 07/25/21 07/25/21 Range/Units 07:55 05:32 05:32 RDW 13.0 L (13.2-15.2) % Seg Neutrophils % 76.4 H (40.0-70.0) % Creatinine 0.4 L (0.6-1.2) mg/dL Glucose 124 H (65-100) mg/dL Calcium 8.3 L (8.4-10.2) mg/dL Coronavirus (PCR) Positive A (Negative) Assessment and Plan Cultures: Blood culture no growth so far COVID: positive A/P: 41-year-old female past medical history hypertension admitted with COVID-19 pneumonia #Severe COVID-19 pneumonia: Patient presented with a week of symptoms, chest x- ray with diffuse bilateral infiltrates, admission O2 sats decreased on room air. Inflammatory markers elevated #Acute hypoxemic respiratory failure: Likely secondary to COVID-19 infection. Currently on 10L [place] #Obesity Recs: -Dexamethasone 6 mg IV/PO daily for 10 days -Remdesivir 200 mg IV q day x 1 followed by 100 mg IV q day x 4 days. Tested positive 10 days previous. At the border of clinical utility. -Given elevated CRP if requiring HFNC >30L/min would give Actemra once. -Obtain q48-72h inflammatory markers - ferritin, Ddimer, CRP, LDH -Stopped antibiotics due to normal procalcitonin. -Anticoagulation per hospital protocol -Proning as able Thank you for the consult, we will continue to follow. Eric Tapia MD [facility] ([facility]) O: [phone] F: [phone]
--- NOTE | 2021-07-25 13:44 | Progress Note ---
Assessment and Plan Assessment and plan: 41-year-old female with past medical history of hypertension comes in for 7-day history of progressive worsening shortness of breath, chills, coughing with mucus production and diarrhea secondary to previously diagnosed COVID-19 approximately 10 days ago. #COVID-19 pneumonia #Acute hypoxic respiratory failure-worsening #Possible community-acquired pneumonia #COVID-19 counseling -Patient currently on 10 L high flow with saturations at 93% (goal >92). Continue to wean as tolerated. -Coronavirus PCR positive (07/24/2021); however, patient was positive approxim ately 10 days prior to presentation to the ED. -Continue IV Decadron 6 mg daily x10 days (ends 08/02/2021) -Elevated D-dimer, CRP, LDH, and ferritin, which are consistent with SIRS. Follow labs every 2-3 days. -Discontinued IV azithromycin and ceftriaxone in the setting of normal procalcitonin. -Infectious disease consulted; appreciate recs. Starting remdesivir (111/05/2021). -Counseled patient on importance of vaccination of family members. Patient expressed understanding. 3 other family members have COVID 19 with symptoms (husbandhospitalized, fatherhospitalized and discharged, and mother at home). -Time: +20 minutes #Hypertension -Blood pressure currently normotensive. Patient not taking antihypertensives at home. -Consider starting antihypertensives if blood pressure becomes elevated. Continue to monitor. #GERD -Continue IV PPI. Continue to monitor #Advanced care planning -Disease education conducted, care plan discussed, diagnoses discussed, prognosis discussed, and patient acknowledges understanding with care plan -Time: +20 minutes Disposition Plan: Continue medical management Total Time Spent with Patient (Minutes): 40 minutes History Interval history: The patient was increased from 4 L nasal cannula high flow 10 L. Hospitalist Physical - Constitutional Vitals: Temp Pulse Resp BP Pulse Ox 98.2 F 69 20 117/71 96 07/25/21 04:00 07/25/21 04:00 07/25/21 04:00 07/25/21 04:00 07/25/21 04:00 General appearance: Present: no acute distress, well-nourished - EENT Eyes: Present: PERRL, EOM intact ENT: hearing intact, clear oral mucosa, dentition normal - Neck Neck: Present: supple, normal ROM - Respiratory Respiratory effort: normal (Currently on high flow 10 L) Respiratory: bilateral: diminished - Cardiovascular Rhythm: regular Heart Sounds: Present: S1 & S2 - Extremities Extremities: no ischemia, pulses intact, pulses symmetrical, No edema, normal temperature, normal color Peripheral Pulses: within normal limits - Abdominal General gastrointestinal: soft, non-tender, non-distended, normal bowel sounds - Integumentary Integumentary: Present: clear, warm, dry - Psychiatric Psychiatric: appropriate mood/affect, intact judgment & insight, memory intact, cooperative - Neurologic Neurologic: CNII-XII intact, moves all extremities - Allied Health Allied health notes reviewed: nursing Results - Labs CBC & Chem 7: 07/25/21 05:32 07/25/21 05:32 Labs: Laboratory Last Values WBC 8.4 K/mm3 (4.5-11.0) 07/25/21 05:32 RBC 4.21 M/mm3 (3.65-5.03) 07/25/21 05:32 Hgb 12.4 gm/dl (10.1-14.3) 07/25/21 05:32 Hct 36.8 % (30.3-42.9) 07/25/21 05:32 MCV 88 fl (79-97) 07/25/21 05:32 MCH 30 pg (28-32) 07/25/21 05:32 MCHC 34 % (30-34) 07/25/21 05:32 RDW 13.0 % (13.2-15.2) L 07/25/21 05:32 Plt Count 225 K/mm3 (140-440) 07/25/21 05:32 Lymph % (Auto) 18.8 % (13.4-35.0) 07/25/21 05:32 [place] % (Auto) 4.7 % (0.0-7.3) 07/25/21 05:32 Eos % (Auto) 0.0 % (0.0-4.3) 07/25/21 05:32 Baso % (Auto) 0.1 % (0.0-1.8) 07/25/21 05:32 Lymph # (Auto) 1.6 K/mm3 (1.2-5.4) 07/25/21 05:32 [place] # (Auto) 0.4 K/mm3 (0.0-0.8) 07/25/21 05:32 Eos # (Auto) 0.0 K/mm3 (0.0-0.4) 07/25/21 05:32 Baso # (Auto) 0.0 K/mm3 (0.0-0.1) 07/25/21 05:32 Seg Neutrophils % 76.4 % (40.0-70.0) H 07/25/21 05:32 Seg Neutrophils # 6.4 K/mm3 (1.8-7.7) 07/25/21 05:32 D-Dimer 327.80 ng/mlDDU (0-234) H 07/23/21 13:43 ABG pH 7.431 pH Units (7.350-7.450) 07/24/21 Unknown ABG pCO2 36.9 mm Hg 07/24/21 Unknown ABG pO2 64.0 mm Hg (80.0-90.0) L 07/24/21 Unknown ABG HCO3 24.0 mmol/L (20.0-26.0) 07/24/21 Unknown ABG O2 Saturation 94.3 % (95.0-99.0) L 07/24/21 Unknown ABG O2 Content 17.4 (0.0-44) 07/24/21 Unknown ABG Base Excess 0.0 mmol/L (-2.0-3.0) 07/24/21 Unknown ABG Hemoglobin 13.3 gm/dl (12.0-16.0) 07/24/21 Unknown ABG Carboxyhemoglobin 1.0 % (0.0-5.0) 07/24/21 Unknown ABG Methemoglobin 0.6 % (0.0-1.5) 07/24/21 Unknown Oxyhemoglobin 92.7 % (95.0-99.0) L 07/24/21 Unknown FiO2 32 % 07/24/21 Unknown Sodium 137 mmol/L (137-145) 07/25/21 05:32 Potassium 3.9 mmol/L (3.6-5.0) 07/25/21 05:32 Chloride 101.5 mmol/L (98-107) 07/25/21 05:32 Carbon Dioxide 24 mmol/L (22-30) 07/25/21 05:32 Anion Gap 15 mmol/L 07/25/21 05:32 BUN 9 mg/dL (7-17) 07/25/21 05:32 Creatinine 0.4 mg/dL (0.6-1.2) L 07/25/21 05:32 Estimated GFR > 60 ml/min 07/25/21 05:32 BUN/Creatinine Ratio 23 % 07/25/21 05:32 Glucose 124 mg/dL (65-100) H 07/25/21 05:32 Lactic Acid 1.40 mmol/L (0.7-2.0) 07/23/21 13:43 Calcium 8.3 mg/dL (8.4-10.2) L 07/25/21 05:32 Phosphorus 2.90 mg/dL (2.5-4.5) 07/25/21 05:32 Magnesium 2.20 mg/dL (1.7-2.3) 07/25/21 05:32 Ferritin 557.3 ng/mL (10.0-200.0) H 07/23/21 17:56 Total Bilirubin < 0.20 mg/dL (0.1-1.2) 07/24/21 04:44 AST 25 units/L (5-40) 07/24/21 04:44 ALT 28 units/L (7-56) 07/24/21 04:44 Alkaline Phosphatase 81 units/L (35-129) 07/24/21 04:44 Lactate Dehydrogenase 264 units/L (91-180) H 07/23/21 17:56 C-Reactive Protein 8.10 mg/dL (0.00-1.30) H 07/23/21 17:56 Total Protein 6.7 g/dL (6.3-8.2) 07/24/21 04:44 Albumin 3.4 g/dL (3.9-5) L 07/24/21 04:44 Albumin/Globulin Ratio 1.0 % 07/24/21 04:44 Procalcitonin < 0.05 ng/mL (<0.15) 07/23/21 17:56 Urine Color Yellow (Yellow) 07/23/21 Unknown Urine Turbidity Clear (Clear) 07/23/21 Unknown Urine pH 8.0 (5.0-7.0) H 07/23/21 Unknown Ur Specific [place] 1.010 (1.003-1.030) 07/23/21 Unknown Urine Protein 30 mg/dl mg/dL (Negative) 07/23/21 Unknown Urine Glucose (UA) Neg mg/dL (Negative) 07/23/21 Unknown Urine Ketones Neg mg/dL (Negative) 07/23/21 Unknown Urine Blood Neg (Negative) 07/23/21 Unknown Urine Nitrite Neg (Negative) 07/23/21 Unknown Urine Bilirubin Neg (Negative) 07/23/21 Unknown Urine Urobilinogen < 2.0 mg/dL (<2.0) 07/23/21 Unknown Ur Leukocyte Esterase Neg (Negative) 07/23/21 Unknown Urine WBC (Auto) < 1.0 /HPF (0.0-6.0) 07/23/21 Unknown Urine RBC (Auto) 7.0 /HPF (0.0-6.0) 07/23/21 Unknown U Epithel Cells (Auto) 3.0 /HPF (0-13.0) 07/23/21 Unknown Hyaline Casts 2 /LPF 07/23/21 Unknown Urine Mucus Few /HPF 07/23/21 Unknown Coronavirus (PCR) Positive (Negative) A 07/24/21 07:55 Microbiology: Microbiology 07/23/21 13:43 Peripheral/Venous Blood Culture - Preliminary NO GROWTH AFTER 24 HOURS 07/23/21 13:43 Peripheral/Venous Blood Culture - Preliminary NO GROWTH AFTER 24 HOURS Mack/IV: Voiding Method Toilet Active Medications - Current Medications Current Medications: Generic Name Dose Route Start Last Admin Trade Name Freq PRN Reason Stop Dose Admin Acetaminophen 650 mg 07/23/21 22:24 07/25/21 09:51 Acetaminophen 325 Mg Tab PO 650 mg Q4H PRN Administration Pain MILD(1-3)/Fever >100.5/GONZALES Dexamethasone 6 mg 07/24/21 10:00 07/25/21 09:47 Dexamethasone 4 Mg/Ml Vial IV 08/01/21 10:01 6 mg Q24HR RUSSEL Administration Enoxaparin Sodium 40 mg 07/23/21 22:00 07/24/21 21:40 Enoxaparin 40 Mg/0.4 Ml Inj SUB-Q 40 mg QDAY@2200 RUSSEL Administration Protocol Famotidine 20 mg 07/24/21 22:00 07/25/21 09:47 Famotidine 20 Mg Tab PO 20 mg BID RUSSEL Administration Hydromorphone HCl 0.5 mg 07/23/21 22:24 Hydromorphone 1 Mg/1 Ml Inj IV Q3H PRN Pain , Severe (7-10) Sodium Chloride 1,000 mls @ 125 mls/hr 07/23/21 18:00 07/25/21 05:43 Nacl 0.9% 1000 Ml IV 125 mls/hr DIRECT RUSSEL Administration Azithromycin 500 mg in 250 mls @ 250 mls/hr 07/24/21 10:00 07/25/21 09:47 Zithromax/Ns IV 07/27/21 10:59 250 mls/hr Q24HR RUSSEL Administration Ceftriaxone Sodium 2 gm in 100 mls @ 200 mls/hr 07/24/21 10:00 07/25/21 09:51 Rocephin/Ns 2 Gm/100 Ml IV 07/27/21 10:29 200 mls/hr Q24HR RUSSEL Administration Protocol REMDESIVIR 200 mg/ Sodium 250 mls @ 500 mls/hr 07/25/21 14:00 Chloride IV 07/25/21 17:00 ONCE@1400 [facility] REMDESIVIR 100 mg/ Sodium 250 mls @ 500 mls/hr 07/26/21 21:00 Chloride IV 07/29/21 21:29 Q24HR@2100 [facility] Metoclopramide HCl 10 mg 07/23/21 22:24 Metoclopramide 10 Mg/2 Ml Inj IV Q6H PRN Nausea And Vomiting Naloxone HCl 0.1 mg 07/23/21 22:24 Naloxone 0.4 Mg/1 Ml Inj IV Q2MIN PRN Res Rate </= 8 or 02 SAT < 92% Ondansetron HCl 4 mg 07/23/21 22:24 Ondansetron 4 Mg/2 Ml Inj IV Q8H PRN Nausea And Vomiting Oxycodone/Acetaminophen 1 tab 07/23/21 22:24 07/24/21 06:13 Oxycodone /Acetaminophen 5-325mg Tab PO 1 tab Q6H PRN Administration Pain, Moderate (4-6) Sodium Chloride 10 ml 07/24/21 10:00 07/25/21 09:48 Sodium Chloride 0.9% 10 Ml Flush Syringe IV 10 ml BID RUSSEL Administration Sodium Chloride 10 ml 07/23/21 22:24 Sodium Chloride 0.9% 10 Ml Flush Syringe IV PRN PRN LINE FLUSH Sodium Chloride 50 ml 07/25/21 14:00 Sodium Chloride 0.9% 50 Ml Ivpb IV 07/29/21 21:01 Q24HR@2100 RUSSEL
[2021-07-25] MEDS ORDERED: REMDESIVIR 200 MG in SODIUM CHLORIDE 0.9% 250ML 250 ML IV SCH (14:00)
[2021-07-25] MEDS: SODIUM CHLORIDE 0.9% 50 ML IVPB IV SCH ×2 (14:33→18:11)
[2021-07-25] MEDS: BENZONATATE 100 MG CAP PO PRN (15:10)
[2021-07-25] MEDS: ENOXAPARIN 40 MG/0.4 ML INJ SUB-Q SCH (21:32)
[2021-07-26] MEDS: oxyCODONE /ACETAMINOPHEN 5-325MG TAB PO PRN ×2 (04:42→11:18)
[2021-07-26] MEDS: BENZONATATE 100 MG CAP PO PRN ×2 (04:43→19:28)
[2021-07-26] MEDS ORDERED: CALCIUM GLUCONATE 1,000 MG in SODIUM CHLORIDE 0.9% 100 ML IV ONE (07:08)
[2021-07-26 07:49] LABS: Basophils % (Auto) 0.1 % (0.0-1.8); Hemoglobin 11.7 gm/dl (10.1-14.3); Lymphocytes % (Auto) 13.8 % (13.4-35.0); Mean Corpuscular HGB Conc 33 % (30-34); Mean Corpuscular Volume 88 fl (79-97); Monocytes # (Auto) 0.4 K/mm3 (0.0-0.8); Monocytes % (Auto) 5.8 % (0.0-7.3); Platelet Count 224 K/mm3 (140-440); Red Blood Count 3.96 M/mm3 (3.65-5.03); Red Cell Distribution Width 13.6 % (13.2-15.2)
[2021-07-26 08:09] LABS: Alanine Aminotransferase 58 units/L (7-56); Albumin 3.3 g/dL (3.9-5); Blood Urea Nitrogen 10 mg/dL (7-17); Calcium 8.2 mg/dL (8.4-10.2); Hemolysis Index 3
[2021-07-26 08:10] LABS: BUN/Creatinine Ratio 33
[2021-07-26] MEDS: FAMOTIDINE 20 MG TAB PO SCH ×2 (09:03→22:46)
[2021-07-26] MEDS: cefTRIAXone/NS 2 GM/100 ML 2 GM/100 ML BAG IV SCH (09:04)
[2021-07-26] MEDS: AZITHROMYCIN/NS 500 MG/250 ML 500 MG/250 ML BAG IV SCH (09:04)
[2021-07-26] MEDS: dexAMETHasone 4 MG/ML VIAL IV SCH (09:04)
--- NOTE | 2021-07-26 11:31 | Progress Note ---
Assessment and Plan Assessment and plan: 41-year-old female with past medical history of hypertension comes in for 7-day history of progressive worsening shortness of breath, chills, coughing with mucus production and diarrhea secondary to previously diagnosed COVID-19 approximately 10 days ago. #COVID-19 pneumonia #Acute hypoxic respiratory failure #Community-acquired pneumonia-resolved #COVID-19 counseling -Patient currently on 10 L high flow with saturations at 93% (goal >92). Continue to wean as tolerated. -Coronavirus PCR positive (07/24/2021); however, patient was positive approximately 10 days prior to presentation to the ED. -Continue IV Decadron 6 mg daily x10 days (ends 08/02/2021) -Elevated D-dimer, CRP, LDH, and ferritin, which are consistent with SIRS. Follow labs every 2-3 days. -Discontinued IV azithromycin and ceftriaxone in the setting of normal procalcitonin. -Infectious disease consulted; appreciate recs. Starting remdesivir (/05/2021). -Counseled patient on importance of vaccination of family members. Patient expressed understanding. 3 other family members have COVID 19 with symptoms (husbandhospitalized, fatherhospitalized and discharged, and mother at home). -Time: +20 minutes #Hypertension -Blood pressure currently normotensive. Patient not taking antihypertensives at home. -Consider starting antihypertensives if blood pressure becomes elevated. Continue to monitor. #GERD -Transitioning to oral PPI. Continue to monitor #Advanced care planning -Disease education conducted, care plan discussed, diagnoses discussed, prognosis discussed, and patient acknowledges understanding with care plan -Time: +20 minutes Disposition Plan: Continue medical management Total Time Spent with Patient (Minutes): 30 minutes History Interval history: No acute events overnight. Hospitalist Physical - Constitutional Vitals: Temp Pulse Resp BP Pulse Ox 98.8 F 95 H 18 110/72 97 07/26/21 04:42 07/26/21 04:42 07/26/21 04:42 07/26/21 04:42 07/26/21 04:42 General appearance: Present: no acute distress, well-nourished - EENT Eyes: Present: PERRL, EOM intact ENT: hearing intact, clear oral mucosa, dentition normal - Neck Neck: Present: supple, normal ROM - Respiratory Respiratory effort: normal Respiratory: bilateral: diminished - Cardiovascular Rhythm: regular Heart Sounds: Present: S1 & S2 - Extremities Extremities: no ischemia, pulses intact, pulses symmetrical, No edema, normal temperature, normal color Peripheral Pulses: within normal limits - Abdominal General gastrointestinal: soft, non-tender, non-distended, normal bowel sounds - Integumentary Integumentary: Present: clear, warm, dry - Psychiatric Psychiatric: appropriate mood/affect, intact judgment & insight, memory intact, cooperative - Neurologic Neurologic: CNII-XII intact, moves all extremities - Allied Health Allied health notes reviewed: nursing Results - Labs CBC & Chem 7: 07/26/21 06:50 07/26/21 06:50 Labs: Laboratory Last Values WBC 7.2 K/mm3 (4.5-11.0) 07/26/21 06:50 RBC 3.96 M/mm3 (3.65-5.03) 07/26/21 06:50 Hgb 11.7 gm/dl (10.1-14.3) 07/26/21 06:50 Hct 35.0 % (30.3-42.9) 07/26/21 06:50 MCV 88 fl (79-97) 07/26/21 06:50 MCH 30 pg (28-32) 07/26/21 06:50 MCHC 33 % (30-34) 07/26/21 06:50 RDW 13.6 % (13.2-15.2) 07/26/21 06:50 Plt Count 224 K/mm3 (140-440) 07/26/21 06:50 Lymph % (Auto) 13.8 % (13.4-35.0) 07/26/21 06:50 [place] % (Auto) 5.8 % (0.0-7.3) 07/26/21 06:50 Eos % (Auto) 0.0 % (0.0-4.3) 07/26/21 06:50 Baso % (Auto) 0.1 % (0.0-1.8) 07/26/21 06:50 Lymph # (Auto) 1.0 K/mm3 (1.2-5.4) L 07/26/21 06:50 [place] # (Auto) 0.4 K/mm3 (0.0-0.8) 07/26/21 06:50 Eos # (Auto) 0.0 K/mm3 (0.0-0.4) 07/26/21 06:50 Baso # (Auto) 0.0 K/mm3 (0.0-0.1) 07/26/21 06:50 Seg Neutrophils % 80.3 % (40.0-70.0) H 07/26/21 06:50 Seg Neutrophils # 5.8 K/mm3 (1.8-7.7) 07/26/21 06:50 D-Dimer 327.80 ng/mlDDU (0-234) H 07/23/21 13:43 ABG pH 7.431 pH Units (7.350-7.450) 07/24/21 Unknown ABG pCO2 36.9 mm Hg 07/24/21 Unknown ABG pO2 64.0 mm Hg (80.0-90.0) L 07/24/21 Unknown ABG HCO3 24.0 mmol/L (20.0-26.0) 07/24/21 Unknown ABG O2 Saturation 94.3 % (95.0-99.0) L 07/24/21 Unknown ABG O2 Content 17.4 (0.0-44) 07/24/21 Unknown ABG Base Excess 0.0 mmol/L (-2.0-3.0) 07/24/21 Unknown ABG Hemoglobin 13.3 gm/dl (12.0-16.0) 07/24/21 Unknown ABG Carboxyhemoglobin 1.0 % (0.0-5.0) 07/24/21 Unknown ABG Methemoglobin 0.6 % (0.0-1.5) 07/24/21 Unknown Oxyhemoglobin 92.7 % (95.0-99.0) L 07/24/21 Unknown FiO2 32 % 07/24/21 Unknown Sodium 137 mmol/L (137-145) 07/26/21 06:50 Potassium 4.0 mmol/L (3.6-5.0) 07/26/21 06:50 Chloride 101.6 mmol/L (98-107) 07/26/21 06:50 Carbon Dioxide 25 mmol/L (22-30) 07/26/21 06:50 Anion Gap 14 mmol/L 07/26/21 06:50 BUN 10 mg/dL (7-17) 07/26/21 06:50 Creatinine 0.3 mg/dL (0.6-1.2) L 07/26/21 06:50 Estimated GFR > 60 ml/min 07/26/21 06:50 BUN/Creatinine Ratio 33 % 07/26/21 06:50 Glucose 119 mg/dL (65-100) H 07/26/21 06:50 Lactic Acid 1.40 mmol/L (0.7-2.0) 07/23/21 13:43 Calcium 8.2 mg/dL (8.4-10.2) L 07/26/21 06:50 Phosphorus 2.80 mg/dL (2.5-4.5) 07/26/21 06:50 Magnesium 2.20 mg/dL (1.7-2.3) 07/26/21 06:50 Ferritin 557.3 ng/mL (10.0-200.0) H 07/23/21 17:56 Total Bilirubin < 0.20 mg/dL (0.1-1.2) 07/26/21 06:50 AST 39 units/L (5-40) 07/26/21 06:50 ALT 58 units/L (7-56) H 07/26/21 06:50 Alkaline Phosphatase 73 units/L (35-129) 07/26/21 06:50 Lactate Dehydrogenase 264 units/L (91-180) H 07/23/21 17:56 C-Reactive Protein 8.10 mg/dL (0.00-1.30) H 07/23/21 17:56 Total Protein 6.8 g/dL (6.3-8.2) 07/26/21 06:50 Albumin 3.3 g/dL (3.9-5) L 07/26/21 06:50 Albumin/Globulin Ratio 0.9 % 07/26/21 06:50 Procalcitonin < 0.05 ng/mL (<0.15) 07/23/21 17:56 Urine Color Yellow (Yellow) 07/23/21 Unknown Urine Turbidity Clear (Clear) 07/23/21 Unknown Urine pH 8.0 (5.0-7.0) H 07/23/21 Unknown Ur Specific [place] 1.010 (1.003-1.030) 07/23/21 Unknown Urine Protein 30 mg/dl mg/dL (Negative) 07/23/21 Unknown Urine Glucose (UA) Neg mg/dL (Negative) 07/23/21 Unknown Urine Ketones Neg mg/dL (Negative) 07/23/21 Unknown Urine Blood Neg (Negative) 07/23/21 Unknown Urine Nitrite Neg (Negative) 07/23/21 Unknown Urine Bilirubin Neg (Negative) 07/23/21 Unknown Urine Urobilinogen < 2.0 mg/dL (<2.0) 07/23/21 Unknown Ur Leukocyte Esterase Neg (Negative) 07/23/21 Unknown Urine WBC (Auto) < 1.0 /HPF (0.0-6.0) 07/23/21 Unknown Urine RBC (Auto) 7.0 /HPF (0.0-6.0) 07/23/21 Unknown U Epithel Cells (Auto) 3.0 /HPF (0-13.0) 07/23/21 Unknown Hyaline Casts 2 /LPF 07/23/21 Unknown Urine Mucus Few /HPF 07/23/21 Unknown Coronavirus (PCR) Positive (Negative) A 07/24/21 07:55 Microbiology: Microbiology 07/23/21 13:43 Peripheral/Venous Blood Culture - Preliminary NO GROWTH AFTER 48 HOURS 07/23/21 13:43 Peripheral/Venous Blood Culture - Preliminary NO GROWTH AFTER 48 HOURS Mack/IV: Voiding Method Toilet Active Medications - Current Medications Current Medications: Generic Name Dose Route Start Last Admin Trade Name Freq PRN Reason Stop Dose Admin Acetaminophen 650 mg 07/23/21 22:24 07/25/21 18:59 Acetaminophen 325 Mg Tab PO 650 mg Q4H PRN Administration Pain MILD(1-3)/Fever >100.5/GONZALES Benzonatate 100 mg 07/25/21 14:35 07/26/21 04:43 Benzonatate 100 Mg Cap PO 100 mg Q8HR PRN Administration Cough Dexamethasone 6 mg 07/24/21 10:00 07/26/21 09:04 Dexamethasone 4 Mg/Ml Vial IV 08/01/21 10:01 6 mg Q24HR RUSSEL Administration Enoxaparin Sodium 40 mg 07/23/21 22:00 07/25/21 21:32 Enoxaparin 40 Mg/0.4 Ml Inj SUB-Q 40 mg QDAY@2200 RUSSEL Administration Protocol Famotidine 20 mg 07/24/21 22:00 07/26/21 09:03 Famotidine 20 Mg Tab PO 20 mg BID RUSSEL Administration Hydromorphone HCl 0.5 mg 07/23/21 22:24 Hydromorphone 1 Mg/1 Ml Inj IV Q3H PRN Pain , Severe (7-10) REMDESIVIR 100 mg/ Sodium 250 mls @ 500 mls/hr 07/26/21 21:00 Chloride IV 07/29/21 21:29 Q24HR@2100 [facility] Metoclopramide HCl 10 mg 07/23/21 22:24 Metoclopramide 10 Mg/2 Ml Inj IV Q6H PRN Nausea And Vomiting Naloxone HCl 0.1 mg 07/23/21 22:24 Naloxone 0.4 Mg/1 Ml Inj IV Q2MIN PRN Res Rate </= 8 or 02 SAT < 92% Ondansetron HCl 4 mg 07/23/21 22:24 Ondansetron 4 Mg/2 Ml Inj IV Q8H PRN Nausea And Vomiting Oxycodone/Acetaminophen 1 tab 07/23/21 22:24 07/26/21 11:18 Oxycodone /Acetaminophen 5-325mg Tab PO 1 tab Q6H PRN Administration Pain, Moderate (4-6) Sodium Chloride 10 ml 07/24/21 10:00 07/26/21 11:20 Sodium Chloride 0.9% 10 Ml Flush Syringe IV 10 ml BID RUSSEL Administration Sodium Chloride 10 ml 07/23/21 22:24 Sodium Chloride 0.9% 10 Ml Flush Syringe IV PRN PRN LINE FLUSH Sodium Chloride 50 ml 07/25/21 14:00 07/25/21 18:11 Sodium Chloride 0.9% 50 Ml Ivpb IV 07/29/21 21:01 Not Given Q24HR@2100 [facility]
[2021-07-26] MEDS: ACETAMINOPHEN 325 MG TAB PO PRN (19:28)
[2021-07-26] MEDS: ENOXAPARIN 40 MG/0.4 ML INJ SUB-Q SCH (22:47)
[2021-07-26] MEDS: REMDESIVIR 100 MG in SODIUM CHLORIDE 0.9% 250ML 250 ML IV SCH (22:47)
[2021-07-26] MEDS: SODIUM CHLORIDE 0.9% 50 ML IVPB IV SCH (22:47)
[2021-07-27] MEDS: ACETAMINOPHEN 325 MG TAB PO PRN (06:54)
[2021-07-27] MEDS ORDERED: CALCIUM GLUCONATE 1,000 MG in SODIUM CHLORIDE 0.9% 100 ML IV ONE (07:18)
[2021-07-27 07:31] LABS: Basophils % (Auto) 0.1 % (0.0-1.8); Hematocrit 39.3 % (30.3-42.9); Lymphocytes # (Auto) 1.3 K/mm3 (1.2-5.4); Lymphocytes % (Auto) 16.4 % (13.4-35.0); Mean Corpuscular HGB Conc 33 % (30-34); Mean Corpuscular Volume 88 fl (79-97); Monocytes # (Auto) 0.5 K/mm3 (0.0-0.8); Monocytes % (Auto) 6.5 % (0.0-7.3); Platelet Count 287 K/mm3 (140-440); Red Blood Count 4.49 M/mm3 (3.65-5.03); Red Cell Distribution Width 13.2 % (13.2-15.2)
[2021-07-27 08:02] LABS: Alanine Aminotransferase 53 units/L (7-56); Albumin 3.4 g/dL (3.9-5); Blood Urea Nitrogen 12 mg/dL (7-17); Calcium 8.8 mg/dL (8.4-10.2); Hemolysis Index 13
[2021-07-27 08:04] LABS: BUN/Creatinine Ratio 24
[2021-07-27] MEDS: FAMOTIDINE 20 MG TAB PO SCH ×2 (09:08→21:23)
[2021-07-27] MEDS: dexAMETHasone 4 MG/ML VIAL IV SCH (09:08)
--- NOTE | 2021-07-27 12:12 | Progress Note ---
Assessment and Plan Assessment and plan: 41-year-old female with past medical history of hypertension comes in for 7-day history of progressive worsening shortness of breath, chills, coughing with mucus production and diarrhea secondary to previously diagnosed COVID-19 approximately 10 days ago. #COVID-19 pneumonia #Acute hypoxic respiratory failure-worsening #Community-acquired pneumonia-resolved #COVID-19 counseling -Patient currently on 15 L high flow with saturations at 93% (goal >92). Continue to wean as tolerated. Encouraged proning. -Coronavirus PCR positive (07/24/2021); however, patient was positive approximately 10 days prior to presentation to the ED. -Continue IV Decadron 6 mg daily x10 days (ends 08/02/2021) -Elevated D-dimer, CRP, LDH, and ferritin, which are consistent with SIRS. Follow labs every 2-3 days. -Discontinued IV azithromycin and ceftriaxone in the setting of normal procalcitonin. -Infectious disease consulted; appreciate recs. Continue remdesivir (/05/2021). -Counseled patient on importance of vaccination of family members. Patient expressed understanding. 3 other family members have COVID 19 with symptoms (husbandhospitalized, fatherhospitalized and discharged, and mother at home). -Time: +20 minutes #Hypertension -Blood pressure currently normotensive. Patient not taking antihypertensives at home. -Consider starting antihypertensives if blood pressure becomes elevated. Continue to monitor. #GERD -Continue oral PPI. Continue to monitor #Advanced care planning -Disease education conducted, care plan discussed, diagnoses discussed, prognosis discussed, and patient acknowledges understanding with care plan -Time: +20 minutes Disposition Plan: Continue medical management Total Time Spent with Patient (Minutes): 40-minute History Interval history: No acute events overnight. Hospitalist Physical - Constitutional Vitals: Temp Pulse Resp BP Pulse Ox 98.0 F 61 18 128/63 97 07/27/21 11:25 07/27/21 11:25 07/27/21 11:25 07/27/21 11:25 07/27/21 11:25 General appearance: Present: no acute distress, well-nourished - EENT Eyes: Present: PERRL, EOM intact ENT: hearing intact, clear oral mucosa, dentition normal - Neck Neck: Present: supple, normal ROM - Respiratory Respiratory effort: normal Respiratory: bilateral: CTA Details: Currently on high flow 15 L - Cardiovascular Rhythm: regular Heart Sounds: Present: S1 & S2 - Extremities Extremities: no ischemia, pulses intact, pulses symmetrical, No edema, normal temperature, normal color Peripheral Pulses: within normal limits - Abdominal General gastrointestinal: soft, non-tender, non-distended, normal bowel sounds - Integumentary Integumentary: Present: clear, warm, dry - Psychiatric Psychiatric: appropriate mood/affect, intact judgment & insight, memory intact, cooperative - Neurologic Neurologic: CNII-XII intact, moves all extremities - Allied Health Allied health notes reviewed: nursing Results - Labs CBC & Chem 7: 07/27/21 06:20 07/27/21 06:20 Labs: Laboratory Last Values WBC 7.7 K/mm3 (4.5-11.0) 07/27/21 06:20 RBC 4.49 M/mm3 (3.65-5.03) 07/27/21 06:20 Hgb 13.0 gm/dl (10.1-14.3) 07/27/21 06:20 Hct 39.3 % (30.3-42.9) 07/27/21 06:20 MCV 88 fl (79-97) 07/27/21 06:20 MCH 29 pg (28-32) 07/27/21 06:20 MCHC 33 % (30-34) 07/27/21 06:20 RDW 13.2 % (13.2-15.2) 07/27/21 06:20 Plt Count 287 K/mm3 (140-440) 07/27/21 06:20 Lymph % (Auto) 16.4 % (13.4-35.0) 07/27/21 06:20 [place] % (Auto) 6.5 % (0.0-7.3) 07/27/21 06:20 Eos % (Auto) 0.0 % (0.0-4.3) 07/27/21 06:20 Baso % (Auto) 0.1 % (0.0-1.8) 07/27/21 06:20 Lymph # (Auto) 1.3 K/mm3 (1.2-5.4) 07/27/21 06:20 [place] # (Auto) 0.5 K/mm3 (0.0-0.8) 07/27/21 06:20 Eos # (Auto) 0.0 K/mm3 (0.0-0.4) 07/27/21 06:20 Baso # (Auto) 0.0 K/mm3 (0.0-0.1) 07/27/21 06:20 Seg Neutrophils % 77.0 % (40.0-70.0) H 07/27/21 06:20 Seg Neutrophils # 5.9 K/mm3 (1.8-7.7) 07/27/21 06:20 D-Dimer 327.80 ng/mlDDU (0-234) H 07/23/21 13:43 ABG pH 7.431 pH Units (7.350-7.450) 07/24/21 Unknown ABG pCO2 36.9 mm Hg 07/24/21 Unknown ABG pO2 64.0 mm Hg (80.0-90.0) L 07/24/21 Unknown ABG HCO3 24.0 mmol/L (20.0-26.0) 07/24/21 Unknown ABG O2 Saturation 94.3 % (95.0-99.0) L 07/24/21 Unknown ABG O2 Content 17.4 (0.0-44) 07/24/21 Unknown ABG Base Excess 0.0 mmol/L (-2.0-3.0) 07/24/21 Unknown ABG Hemoglobin 13.3 gm/dl (12.0-16.0) 07/24/21 Unknown ABG Carboxyhemoglobin 1.0 % (0.0-5.0) 07/24/21 Unknown ABG Methemoglobin 0.6 % (0.0-1.5) 07/24/21 Unknown Oxyhemoglobin 92.7 % (95.0-99.0) L 07/24/21 Unknown FiO2 32 % 07/24/21 Unknown Sodium 137 mmol/L (137-145) 07/27/21 06:20 Potassium 3.8 mmol/L (3.6-5.0) 07/27/21 06:20 Chloride 99.6 mmol/L (98-107) 07/27/21 06:20 Carbon Dioxide 25 mmol/L (22-30) 07/27/21 06:20 Anion Gap 16 mmol/L 07/27/21 06:20 BUN 12 mg/dL (7-17) 07/27/21 06:20 Creatinine 0.5 mg/dL (0.6-1.2) L D 07/27/21 06:20 Estimated GFR > 60 ml/min 07/27/21 06:20 BUN/Creatinine Ratio 24 % 07/27/21 06:20 Glucose 126 mg/dL (65-100) H 07/27/21 06:20 Lactic Acid 1.40 mmol/L (0.7-2.0) 07/23/21 13:43 Calcium 8.8 mg/dL (8.4-10.2) 07/27/21 06:20 Phosphorus 2.80 mg/dL (2.5-4.5) 07/26/21 06:50 Magnesium 2.20 mg/dL (1.7-2.3) 07/26/21 06:50 Ferritin 557.3 ng/mL (10.0-200.0) H 07/23/21 17:56 Total Bilirubin 0.40 mg/dL (0.1-1.2) 07/27/21 06:20 AST 32 units/L (5-40) 07/27/21 06:20 ALT 53 units/L (7-56) 07/27/21 06:20 Alkaline Phosphatase 75 units/L (35-129) 07/27/21 06:20 Lactate Dehydrogenase 264 units/L (91-180) H 07/23/21 17:56 C-Reactive Protein 8.10 mg/dL (0.00-1.30) H 07/23/21 17:56 Total Protein 6.9 g/dL (6.3-8.2) 07/27/21 06:20 Albumin 3.4 g/dL (3.9-5) L 07/27/21 06:20 Albumin/Globulin Ratio 1.0 % 07/27/21 06:20 Procalcitonin < 0.05 ng/mL (<0.15) 07/23/21 17:56 Urine Color Yellow (Yellow) 07/23/21 Unknown Urine Turbidity Clear (Clear) 07/23/21 Unknown Urine pH 8.0 (5.0-7.0) H 07/23/21 Unknown Ur Specific [place] 1.010 (1.003-1.030) 07/23/21 Unknown Urine Protein 30 mg/dl mg/dL (Negative) 07/23/21 Unknown Urine Glucose (UA) Neg mg/dL (Negative) 07/23/21 Unknown Urine Ketones Neg mg/dL (Negative) 07/23/21 Unknown Urine Blood Neg (Negative) 07/23/21 Unknown Urine Nitrite Neg (Negative) 07/23/21 Unknown Urine Bilirubin Neg (Negative) 07/23/21 Unknown Urine Urobilinogen < 2.0 mg/dL (<2.0) 07/23/21 Unknown Ur Leukocyte Esterase Neg (Negative) 07/23/21 Unknown Urine WBC (Auto) < 1.0 /HPF (0.0-6.0) 07/23/21 Unknown Urine RBC (Auto) 7.0 /HPF (0.0-6.0) 07/23/21 Unknown U Epithel Cells (Auto) 3.0 /HPF (0-13.0) 07/23/21 Unknown Hyaline Casts 2 /LPF 07/23/21 Unknown Urine Mucus Few /HPF 07/23/21 Unknown Coronavirus (PCR) Positive (Negative) A 07/24/21 07:55 Microbiology: Microbiology 07/23/21 13:43 Peripheral/Venous Blood Culture - Preliminary NO GROWTH AFTER 72 HOURS 07/23/21 13:43 Peripheral/Venous Blood Culture - Preliminary NO GROWTH AFTER 72 HOURS Mack/IV: Voiding Method Toilet Active Medications - Current Medications Current Medications: Generic Name Dose Route Start Last Admin Trade Name Freq PRN Reason Stop Dose Admin Acetaminophen 650 mg 07/23/21 22:24 07/27/21 06:54 Acetaminophen 325 Mg Tab PO 650 mg Q4H PRN Administration Pain MILD(1-3)/Fever >100.5/GONZALES Benzonatate 100 mg 07/25/21 14:35 07/26/21 19:28 Benzonatate 100 Mg Cap PO 100 mg Q8HR PRN Administration Cough Dexamethasone 6 mg 07/24/21 10:00 07/27/21 09:08 Dexamethasone 4 Mg/Ml Vial IV 08/01/21 10:01 6 mg Q24HR RUSSEL Administration Enoxaparin Sodium 40 mg 07/23/21 22:00 07/26/21 22:47 Enoxaparin 40 Mg/0.4 Ml Inj SUB-Q 40 mg QDAY@2200 RUSSEL Administration Protocol Famotidine 20 mg 07/24/21 22:00 07/27/21 09:08 Famotidine 20 Mg Tab PO 20 mg BID RUSSEL Administration Hydromorphone HCl 0.5 mg 07/23/21 22:24 Hydromorphone 1 Mg/1 Ml Inj IV Q3H PRN Pain , Severe (7-10) REMDESIVIR 100 mg/ Sodium 250 mls @ 500 mls/hr 07/26/21 21:00 07/26/21 22:47 Chloride IV 07/29/21 21:29 500 mls/hr Q24HR@2100 RUSSEL Administration Metoclopramide HCl 10 mg 07/23/21 22:24 Metoclopramide 10 Mg/2 Ml Inj IV Q6H PRN Nausea And Vomiting Naloxone HCl 0.1 mg 07/23/21 22:24 Naloxone 0.4 Mg/1 Ml Inj IV Q2MIN PRN Res Rate </= 8 or 02 SAT < 92% Ondansetron HCl 4 mg 07/23/21 22:24 Ondansetron 4 Mg/2 Ml Inj IV Q8H PRN Nausea And Vomiting Oxycodone/Acetaminophen 1 tab 07/23/21 22:24 07/26/21 11:18 Oxycodone /Acetaminophen 5-325mg Tab PO 1 tab Q6H PRN Administration Pain, Moderate (4-6) Sodium Chloride 10 ml 07/24/21 10:00 07/27/21 09:10 Sodium Chloride 0.9% 10 Ml Flush Syringe IV 10 ml BID RUSSEL Administration Sodium Chloride 10 ml 07/23/21 22:24 Sodium Chloride 0.9% 10 Ml Flush Syringe IV PRN PRN LINE FLUSH Sodium Chloride 50 ml 07/25/21 14:00 07/26/21 22:47 Sodium Chloride 0.9% 50 Ml Ivpb IV 07/29/21 21:01 50 ml Q24HR@2100 RUSSEL Administration
[2021-07-27] MEDS: oxyCODONE /ACETAMINOPHEN 5-325MG TAB PO PRN (21:23)
[2021-07-27] MEDS: ENOXAPARIN 40 MG/0.4 ML INJ SUB-Q SCH (21:23)
[2021-07-27] MEDS: MELATONIN 5 MG TAB PO SCH (21:23)
[2021-07-27] MEDS: SODIUM CHLORIDE 0.9% 50 ML IVPB IV SCH (21:24)
[2021-07-27] MEDS: REMDESIVIR 100 MG in SODIUM CHLORIDE 0.9% 250ML 250 ML IV SCH (21:24)
[2021-07-28 07:06] LABS: Alanine Aminotransferase 74 units/L (7-56); Albumin 3.5 g/dL (3.9-5); Blood Urea Nitrogen 14 mg/dL (7-17); Calcium 8.6 mg/dL (8.4-10.2); Hemolysis Index 9
[2021-07-28 07:10] LABS: BUN/Creatinine Ratio 35
[2021-07-28] MEDS: dexAMETHasone 4 MG/ML VIAL IV SCH (09:27)
[2021-07-28] MEDS: FAMOTIDINE 20 MG TAB PO SCH ×2 (09:28→23:12)
--- NOTE | 2021-07-28 10:40 | Progress Note ---
Assessment and Plan Cultures: Blood culture no growth so far COVID: positive A/P: 41-year-old female past medical history hypertension admitted with COVID-19 pneumonia #Severe COVID-19 pneumonia: Patient presented with a week of symptoms, chest x- ray with diffuse bilateral infiltrates, admission O2 sats decreased on room air. Inflammatory markers elevated #Acute hypoxemic respiratory failure: Likely secondary to COVID-19 infection. Currently on 10L [place] #Obesity Recs: -Dexamethasone 6 mg IV/PO daily for 10 days -Remdesivir 200 mg IV q day x 1 followed by 100 mg IV q day x 4 days. Tested positive 10 days previous. At the border of clinical utility. -Given elevated CRP if requiring HFNC >30L/min would give Actemra once. -Obtain q48-72h inflammatory markers - ferritin, Ddimer, CRP, LDH -Stopped antibiotics due to normal procalcitonin. -Anticoagulation per hospital protocol -Proning as able Thank you for the consult, we will continue to follow. Eric Tapia MD [facility], [place], [facility] ([facility] O: [phone] F: [phone] Subjective Date of service: 07/28/21 Interval history: Afebrile, normal white count. No acute change. On 10L [place]. Objective - Exam Narrative Exam: Physical exam deferred to reduce risk of transmission of COVID-19. Please refer to primary team's note. - Constitutional Vitals: Vital Signs Temp Pulse Resp BP Pulse Ox 98.0 F 49 L 16 116/49 94 07/28/21 04:24 07/28/21 04:24 07/28/21 04:24 07/28/21 04:24 07/28/21 10:35 Temperature -Last 24 Hours Temperature 98.0 F Temperature 97.9 F Temperature 98.0 F - Labs CBC & Chem 7: 07/27/21 06:20 07/28/21 05:40 Labs: Abnormal lab results 07/28/21 07/28/21 07/28/21 Range/Units 05:40 05:40 05:40 D-Dimer 306.17 H (0-234) ng/mlDDU Creatinine 0.4 L (0.6-1.2) mg/dL Glucose 102 H (65-100) mg/dL Ferritin 738.1 H (10.0-200.0) ng/mL ALT 74 H (7-56) units/L C-Reactive Protein 1.40 H (0.00-1.30) mg/dL Albumin 3.5 L (3.9-5) g/dL
--- NOTE | 2021-07-28 11:33 | Progress Note ---
Assessment and Plan Assessment and plan: 41-year-old female with past medical history of hypertension comes in for 7-day history of progressive worsening shortness of breath, chills, coughing with mucus production and diarrhea secondary to previously diagnosed COVID-19 approximately 10 days ago. #COVID-19 pneumonia #Acute hypoxic respiratory failure-stable #Community-acquired pneumonia-resolved #COVID-19 counseling -Patient currently on 15 L high flow with saturations at 93% (goal >92). Continue to wean as tolerated. Encouraged proning. -Coronavirus PCR positive (07/24/2021); however, patient was positive approximately 10 days prior to presentation to the ED. -Continue IV Decadron 6 mg daily x10 days (ends 08/02/2021) -Elevated D-dimer, CRP, LDH, and ferritin, which are consistent with SIRS. Follow labs every 2-3 days. -Discontinued IV azithromycin and ceftriaxone in the setting of normal procalcitonin. -Infectious disease consulted; appreciate recs. Continue remdesivir (/05/2021). Actemra x1 per ID. -Counseled patient on importance of vaccination of family members. Patient expressed understanding. 3 other family members have COVID 19 with symptoms (husbandhospitalized, fatherhospitalized and discharged, and mother at home). -Time: +20 minutes #Hypertension -Blood pressure currently normotensive. Patient not taking antihypertensives at home. -Consider starting antihypertensives if blood pressure becomes elevated. Continue to monitor. #GERD -Continue oral PPI. Continue to monitor #Advanced care planning -Disease education conducted, care plan discussed, diagnoses discussed, p rognosis discussed, and patient acknowledges understanding with care plan -Time: +20 minutes Disposition Plan: Continue medical management Total Time Spent with Patient (Minutes): 40 minutes History Interval history: No acute events overnight. Hospitalist Physical - Constitutional Vitals: Temp Pulse Resp BP Pulse Ox 98.0 F 49 L 16 116/49 94 07/28/21 04:24 07/28/21 04:24 07/28/21 04:24 07/28/21 04:24 07/28/21 10:35 General appearance: Present: no acute distress, well-nourished, other (Fatigued) - EENT Eyes: Present: PERRL, EOM intact ENT: hearing intact, clear oral mucosa, dentition normal - Neck Neck: Present: supple, normal ROM - Respiratory Respiratory effort: labored Respiratory: bilateral: diminished Details: On high flow 15 L - Cardiovascular Rhythm: regular Heart Sounds: Present: S1 & S2 - Extremities Extremities: no ischemia, pulses intact, pulses symmetrical, No edema, normal temperature, normal color Peripheral Pulses: within normal limits - Abdominal General gastrointestinal: soft, non-tender, non-distended, normal bowel sounds - Integumentary Integumentary: Present: clear, warm, dry - Psychiatric Psychiatric: appropriate mood/affect, intact judgment & insight, memory intact, cooperative - Neurologic Neurologic: CNII-XII intact, moves all extremities - Allied Health Allied health notes reviewed: nursing Results - Labs CBC & Chem 7: 07/27/21 06:20 07/28/21 05:40 Labs: Laboratory Last Values WBC 7.7 K/mm3 (4.5-11.0) 07/27/21 06:20 RBC 4.49 M/mm3 (3.65-5.03) 07/27/21 06:20 Hgb 13.0 gm/dl (10.1-14.3) 07/27/21 06:20 Hct 39.3 % (30.3-42.9) 07/27/21 06:20 MCV 88 fl (79-97) 07/27/21 06:20 MCH 29 pg (28-32) 07/27/21 06:20 MCHC 33 % (30-34) 07/27/21 06:20 RDW 13.2 % (13.2-15.2) 07/27/21 06:20 Plt Count 287 K/mm3 (140-440) 07/27/21 06:20 Lymph % (Auto) 16.4 % (13.4-35.0) 07/27/21 06:20 [place] % (Auto) 6.5 % (0.0-7.3) 07/27/21 06:20 Eos % (Auto) 0.0 % (0.0-4.3) 07/27/21 06:20 Baso % (Auto) 0.1 % (0.0-1.8) 07/27/21 06:20 Lymph # (Auto) 1.3 K/mm3 (1.2-5.4) 07/27/21 06:20 [place] # (Auto) 0.5 K/mm3 (0.0-0.8) 07/27/21 06:20 Eos # (Auto) 0.0 K/mm3 (0.0-0.4) 07/27/21 06:20 Baso # (Auto) 0.0 K/mm3 (0.0-0.1) 07/27/21 06:20 Seg Neutrophils % 77.0 % (40.0-70.0) H 07/27/21 06:20 Seg Neutrophils # 5.9 K/mm3 (1.8-7.7) 07/27/21 06:20 D-Dimer 306.17 ng/mlDDU (0-234) H 07/28/21 05:40 ABG pH 7.431 pH Units (7.350-7.450) 07/24/21 Unknown ABG pCO2 36.9 mm Hg 07/24/21 Unknown ABG pO2 64.0 mm Hg (80.0-90.0) L 07/24/21 Unknown ABG HCO3 24.0 mmol/L (20.0-26.0) 07/24/21 Unknown ABG O2 Saturation 94.3 % (95.0-99.0) L 07/24/21 Unknown ABG O2 Content 17.4 (0.0-44) 07/24/21 Unknown ABG Base Excess 0.0 mmol/L (-2.0-3.0) 07/24/21 Unknown ABG Hemoglobin 13.3 gm/dl (12.0-16.0) 07/24/21 Unknown ABG Carboxyhemoglobin 1.0 % (0.0-5.0) 07/24/21 Unknown ABG Methemoglobin 0.6 % (0.0-1.5) 07/24/21 Unknown Oxyhemoglobin 92.7 % (95.0-99.0) L 07/24/21 Unknown FiO2 32 % 07/24/21 Unknown Sodium 138 mmol/L (137-145) 07/28/21 05:40 Potassium 3.6 mmol/L (3.6-5.0) 07/28/21 05:40 Chloride 100.9 mmol/L (98-107) 07/28/21 05:40 Carbon Dioxide 24 mmol/L (22-30) 07/28/21 05:40 Anion Gap 17 mmol/L 07/28/21 05:40 BUN 14 mg/dL (7-17) 07/28/21 05:40 Creatinine 0.4 mg/dL (0.6-1.2) L 07/28/21 05:40 Estimated GFR > 60 ml/min 07/28/21 05:40 BUN/Creatinine Ratio 35 % 07/28/21 05:40 Glucose 102 mg/dL (65-100) H 07/28/21 05:40 Lactic Acid 1.40 mmol/L (0.7-2.0) 07/23/21 13:43 Calcium 8.6 mg/dL (8.4-10.2) 07/28/21 05:40 Phosphorus 2.80 mg/dL (2.5-4.5) 07/26/21 06:50 Magnesium 2.20 mg/dL (1.7-2.3) 07/26/21 06:50 Ferritin 738.1 ng/mL (10.0-200.0) H 07/28/21 05:40 Total Bilirubin 0.40 mg/dL (0.1-1.2) 07/28/21 05:40 AST 26 units/L (5-40) 07/28/21 05:40 ALT 74 units/L (7-56) H 07/28/21 05:40 Alkaline Phosphatase 78 units/L (35-129) 07/28/21 05:40 Lactate Dehydrogenase 264 units/L (91-180) H 07/23/21 17:56 C-Reactive Protein 1.40 mg/dL (0.00-1.30) H 07/28/21 05:40 Total Protein 7.0 g/dL (6.3-8.2) 07/28/21 05:40 Albumin 3.5 g/dL (3.9-5) L 07/28/21 05:40 Albumin/Globulin Ratio 1.0 % 07/28/21 05:40 Procalcitonin < 0.05 ng/mL (<0.15) 07/23/21 17:56 Urine Color Yellow (Yellow) 07/23/21 Unknown Urine Turbidity Clear (Clear) 07/23/21 Unknown Urine pH 8.0 (5.0-7.0) H 07/23/21 Unknown Ur Specific [place] 1.010 (1.003-1.030) 07/23/21 Unknown Urine Protein 30 mg/dl mg/dL (Negative) 07/23/21 Unknown Urine Glucose (UA) Neg mg/dL (Negative) 07/23/21 Unknown Urine Ketones Neg mg/dL (Negative) 07/23/21 Unknown Urine Blood Neg (Negative) 07/23/21 Unknown Urine Nitrite Neg (Negative) 07/23/21 Unknown Urine Bilirubin Neg (Negative) 07/23/21 Unknown Urine Urobilinogen < 2.0 mg/dL (<2.0) 07/23/21 Unknown Ur Leukocyte Esterase Neg (Negative) 07/23/21 Unknown Urine WBC (Auto) < 1.0 /HPF (0.0-6.0) 07/23/21 Unknown Urine RBC (Auto) 7.0 /HPF (0.0-6.0) 07/23/21 Unknown U Epithel Cells (Auto) 3.0 /HPF (0-13.0) 07/23/21 Unknown Hyaline Casts 2 /LPF 07/23/21 Unknown Urine Mucus Few /HPF 07/23/21 Unknown Coronavirus (PCR) Positive (Negative) A 07/24/21 07:55 Microbiology: Microbiology 07/23/21 13:43 Peripheral/Venous Blood Culture - Preliminary NO GROWTH AFTER 4 DAYS 07/23/21 13:43 Peripheral/Venous Blood Culture - Preliminary NO GROWTH AFTER 4 DAYS Mack/IV: Voiding Method Toilet Active Medications - Current Medications Current Medications: Generic Name Dose Route Start Last Admin Trade Name Freq PRN Reason Stop Dose Admin Acetaminophen 650 mg 07/23/21 22:24 07/27/21 06:54 Acetaminophen 325 Mg Tab PO 650 mg Q4H PRN Administration Pain MILD(1-3)/Fever >100.5/GONZALES Benzonatate 100 mg 07/25/21 14:35 07/26/21 19:28 Benzonatate 100 Mg Cap PO 100 mg Q8HR PRN Administration Cough Dexamethasone 6 mg 07/24/21 10:00 07/28/21 09:27 Dexamethasone 4 Mg/Ml Vial IV 08/01/21 10:01 6 mg Q24HR RUSSEL Administration Enoxaparin Sodium 40 mg 07/23/21 22:00 07/27/21 21:23 Enoxaparin 40 Mg/0.4 Ml Inj SUB-Q 40 mg QDAY@2200 RUSSEL Administration Protocol Famotidine 20 mg 07/24/21 22:00 07/28/21 09:28 Famotidine 20 Mg Tab PO 20 mg BID RUSSEL Administration Hydromorphone HCl 0.5 mg 07/23/21 22:24 Hydromorphone 1 Mg/1 Ml Inj IV Q3H PRN Pain , Severe (7-10) REMDESIVIR 100 mg/ Sodium 250 mls @ 500 mls/hr 07/26/21 21:00 07/28/21 06:04 Chloride IV 07/29/21 21:29 Infused Q24HR@2100 [facility] Infusion Melatonin 5 mg 07/27/21 22:00 07/27/21 21:23 Melatonin 5 Mg Tab PO 5 mg QHS RUSSEL Administration Metoclopramide HCl 10 mg 07/23/21 22:24 Metoclopramide 10 Mg/2 Ml Inj IV Q6H PRN Nausea And Vomiting Naloxone HCl 0.1 mg 07/23/21 22:24 Naloxone 0.4 Mg/1 Ml Inj IV Q2MIN PRN Res Rate </= 8 or 02 SAT < 92% Ondansetron HCl 4 mg 07/23/21 22:24 Ondansetron 4 Mg/2 Ml Inj IV Q8H PRN Nausea And Vomiting Oxycodone/Acetaminophen 1 tab 07/23/21 22:24 07/27/21 21:23 Oxycodone /Acetaminophen 5-325mg Tab PO 1 tab Q6H PRN Administration Pain, Moderate (4-6) Sodium Chloride 10 ml 07/24/21 10:00 07/28/21 09:28 Sodium Chloride 0.9% 10 Ml Flush Syringe IV 10 ml BID RUSSEL Administration Sodium Chloride 10 ml 07/23/21 22:24 Sodium Chloride 0.9% 10 Ml Flush Syringe IV PRN PRN LINE FLUSH Sodium Chloride 50 ml 07/25/21 14:00 07/27/21 21:24 Sodium Chloride 0.9% 50 Ml Ivpb IV 07/29/21 21:01 50 ml Q24HR@2100 [facility] Administration
[2021-07-28] MEDS: SODIUM CHLORIDE 0.9% 50 ML IVPB IV SCH (23:11)
[2021-07-28] MEDS: REMDESIVIR 100 MG in SODIUM CHLORIDE 0.9% 250ML 250 ML IV SCH (23:11)
[2021-07-28] MEDS: MELATONIN 5 MG TAB PO SCH (23:12)
[2021-07-28] MEDS: ENOXAPARIN 40 MG/0.4 ML INJ SUB-Q SCH (23:12)
[2021-07-29 08:01] LABS: Blood Urea Nitrogen 16 mg/dL (7-17); Calcium 8.5 mg/dL (8.4-10.2); Hemolysis Index 7
[2021-07-29 08:32] LABS: BUN/Creatinine Ratio 40
--- NOTE | 2021-07-29 09:06 | Progress Note ---
Assessment and Plan Assessment and plan: 41-year-old female with history of hypertension who presented with progressive worsening shortness of breath, chills and productive cough secondary to previously diagnosed COVID-19. Was found to have acute hypoxic respiratory failure secondary to COVID pneumonia. #COVID-19 pneumonia #Acute hypoxic respiratory failure -Currently on 10 L high flow nasal cannula -Goal O2 greater than 92%, will wean as tolerated -Encouraged self pronation -Continue Decadron 6 mg x 10 days (last day 08/02) -Last day of remdesivir; Actemra x1 #Hypertension -normotensive, will continue to monitor #GERD -continue PPI Disposition Plan: Continue medical management Total Time Spent with Patient (Minutes): 20 minutes History Interval history: No acute events overnight. Patient communicated with via daughter on phone at patient's preference. She denies chest pain, worsening shortness of breath. No other complaints at this time. Hospitalist Physical - Physical exam Narrative exam: GENERAL: Well-developed well-nourished. Sitting up in bed, in no acute distress. HEENT: Nasal cannula at 10 L/min CHEST/LUNGS: Coarse breath sounds bilaterally. No increased work of breathing HEART/CARDIOVASCULAR: RRR. No murmur, rubs or gallops appreciated. ABDOMEN: +BS. NT/ND. NEURO: No focal motor deficit. Follows all commands and is ambulatory. MUSCULOSKELETAL: No joint effusion EXTREMITIES: No cyanosis, clubbing or edema. PSYCH: Cooperative. - Constitutional Vitals: Temp Pulse Resp BP Pulse Ox 97.3 F L 60 20 115/72 92 07/29/21 05:56 07/29/21 05:56 07/29/21 05:56 07/29/21 05:56 07/29/21 08:46 General appearance: Present: no acute distress, well-nourished, other (Fatigued) Results - Labs CBC & Chem 7: 07/27/21 06:20 07/29/21 06:55 Labs: Laboratory Last Values WBC 7.7 K/mm3 (4.5-11.0) 07/27/21 06:20 RBC 4.49 M/mm3 (3.65-5.03) 07/27/21 06:20 Hgb 13.0 gm/dl (10.1-14.3) 07/27/21 06:20 Hct 39.3 % (30.3-42.9) 07/27/21 06:20 MCV 88 fl (79-97) 07/27/21 06:20 MCH 29 pg (28-32) 07/27/21 06:20 MCHC 33 % (30-34) 07/27/21 06:20 RDW 13.2 % (13.2-15.2) 07/27/21 06:20 Plt Count 287 K/mm3 (140-440) 07/27/21 06:20 Lymph % (Auto) 16.4 % (13.4-35.0) 07/27/21 06:20 [place] % (Auto) 6.5 % (0.0-7.3) 07/27/21 06:20 Eos % (Auto) 0.0 % (0.0-4.3) 07/27/21 06:20 Baso % (Auto) 0.1 % (0.0-1.8) 07/27/21 06:20 Lymph # (Auto) 1.3 K/mm3 (1.2-5.4) 07/27/21 06:20 [place] # (Auto) 0.5 K/mm3 (0.0-0.8) 07/27/21 06:20 Eos # (Auto) 0.0 K/mm3 (0.0-0.4) 07/27/21 06:20 Baso # (Auto) 0.0 K/mm3 (0.0-0.1) 07/27/21 06:20 Seg Neutrophils % 77.0 % (40.0-70.0) H 07/27/21 06:20 Seg Neutrophils # 5.9 K/mm3 (1.8-7.7) 07/27/21 06:20 D-Dimer 306.17 ng/mlDDU (0-234) H 07/28/21 05:40 ABG pH 7.431 pH Units (7.350-7.450) 07/24/21 Unknown ABG pCO2 36.9 mm Hg 07/24/21 Unknown ABG pO2 64.0 mm Hg (80.0-90.0) L 07/24/21 Unknown ABG HCO3 24.0 mmol/L (20.0-26.0) 07/24/21 Unknown ABG O2 Saturation 94.3 % (95.0-99.0) L 07/24/21 Unknown ABG O2 Content 17.4 (0.0-44) 07/24/21 Unknown ABG Base Excess 0.0 mmol/L (-2.0-3.0) 07/24/21 Unknown ABG Hemoglobin 13.3 gm/dl (12.0-16.0) 07/24/21 Unknown ABG Carboxyhemoglobin 1.0 % (0.0-5.0) 07/24/21 Unknown ABG Methemoglobin 0.6 % (0.0-1.5) 07/24/21 Unknown Oxyhemoglobin 92.7 % (95.0-99.0) L 07/24/21 Unknown FiO2 32 % 07/24/21 Unknown Sodium 138 mmol/L (137-145) 07/29/21 06:55 Potassium 3.9 mmol/L (3.6-5.0) 07/29/21 06:55 Chloride 101.0 mmol/L (98-107) 07/29/21 06:55 Carbon Dioxide 24 mmol/L (22-30) 07/29/21 06:55 Anion Gap 17 mmol/L 07/29/21 06:55 BUN 16 mg/dL (7-17) 07/29/21 06:55 Creatinine 0.4 mg/dL (0.6-1.2) L 07/29/21 06:55 Estimated GFR > 60 ml/min 07/29/21 06:55 BUN/Creatinine Ratio 40 % 07/29/21 06:55 Glucose 113 mg/dL (65-100) H 07/29/21 06:55 Lactic Acid 1.40 mmol/L (0.7-2.0) 07/23/21 13:43 Calcium 8.5 mg/dL (8.4-10.2) 07/29/21 06:55 Phosphorus 2.80 mg/dL (2.5-4.5) 07/26/21 06:50 Magnesium 2.20 mg/dL (1.7-2.3) 07/26/21 06:50 Ferritin 738.1 ng/mL (10.0-200.0) H 07/28/21 05:40 Total Bilirubin 0.40 mg/dL (0.1-1.2) 07/28/21 05:40 AST 26 units/L (5-40) 07/28/21 05:40 ALT 74 units/L (7-56) H 07/28/21 05:40 Alkaline Phosphatase 78 units/L (35-129) 07/28/21 05:40 Lactate Dehydrogenase 264 units/L (91-180) H 07/23/21 17:56 C-Reactive Protein 1.40 mg/dL (0.00-1.30) H 07/28/21 05:40 Total Protein 7.0 g/dL (6.3-8.2) 07/28/21 05:40 Albumin 3.5 g/dL (3.9-5) L 07/28/21 05:40 Albumin/Globulin Ratio 1.0 % 07/28/21 05:40 Procalcitonin < 0.05 ng/mL (<0.15) 07/23/21 17:56 Urine Color Yellow (Yellow) 07/23/21 Unknown Urine Turbidity Clear (Clear) 07/23/21 Unknown Urine pH 8.0 (5.0-7.0) H 07/23/21 Unknown Ur Specific [place] 1.010 (1.003-1.030) 07/23/21 Unknown Urine Protein 30 mg/dl mg/dL (Negative) 07/23/21 Unknown Urine Glucose (UA) Neg mg/dL (Negative) 07/23/21 Unknown Urine Ketones Neg mg/dL (Negative) 07/23/21 Unknown Urine Blood Neg (Negative) 07/23/21 Unknown Urine Nitrite Neg (Negative) 07/23/21 Unknown Urine Bilirubin Neg (Negative) 07/23/21 Unknown Urine Urobilinogen < 2.0 mg/dL (<2.0) 07/23/21 Unknown Ur Leukocyte Esterase Neg (Negative) 07/23/21 Unknown Urine WBC (Auto) < 1.0 /HPF (0.0-6.0) 07/23/21 Unknown Urine RBC (Auto) 7.0 /HPF (0.0-6.0) 07/23/21 Unknown U Epithel Cells (Auto) 3.0 /HPF (0-13.0) 07/23/21 Unknown Hyaline Casts 2 /LPF 07/23/21 Unknown Urine Mucus Few /HPF 07/23/21 Unknown Coronavirus (PCR) Positive (Negative) A 07/24/21 07:55 Microbiology: Microbiology 07/23/21 13:43 Peripheral/Venous Blood Culture - Final NO GROWTH AFTER 5 DAYS 07/23/21 13:43 Peripheral/Venous Blood Culture - Final NO GROWTH AFTER 5 DAYS Mack/IV: Voiding Method Bedside Commode Active Medications - Current Medications Current Medications: Generic Name Dose Route Start Last Admin Trade Name Freq PRN Reason Stop Dose Admin Acetaminophen 650 mg 07/23/21 22:24 07/27/21 06:54 Acetaminophen 325 Mg Tab PO 650 mg Q4H PRN Administration Pain MILD(1-3)/Fever >100.5/GONZALES Benzonatate 100 mg 07/25/21 14:35 07/26/21 19:28 Benzonatate 100 Mg Cap PO 100 mg Q8HR PRN Administration Cough Dexamethasone 6 mg 07/24/21 10:00 07/28/21 09:27 Dexamethasone 4 Mg/Ml Vial IV 08/01/21 10:01 6 mg Q24HR RUSSEL Administration Enoxaparin Sodium 40 mg 07/23/21 22:00 07/28/21 23:12 Enoxaparin 40 Mg/0.4 Ml Inj SUB-Q 40 mg QDAY@2200 RUSSEL Administration Protocol Famotidine 20 mg 07/24/21 22:00 07/28/21 23:12 Famotidine 20 Mg Tab PO 20 mg BID RUSSEL Administration Hydromorphone HCl 0.5 mg 07/23/21 22:24 Hydromorphone 1 Mg/1 Ml Inj IV Q3H PRN Pain , Severe (7-10) REMDESIVIR 100 mg/ Sodium 250 mls @ 500 mls/hr 07/26/21 21:00 07/28/21 23:11 Chloride IV 07/29/21 21:29 500 mls/hr Q24HR@2100 RUSSEL Administration Melatonin 5 mg 07/27/21 22:00 07/28/21 23:12 Melatonin 5 Mg Tab PO 5 mg QHS RUSSEL Administration Metoclopramide HCl 10 mg 07/23/21 22:24 Metoclopramide 10 Mg/2 Ml Inj IV Q6H PRN Nausea And Vomiting Naloxone HCl 0.1 mg 07/23/21 22:24 Naloxone 0.4 Mg/1 Ml Inj IV Q2MIN PRN Res Rate </= 8 or 02 SAT < 92% Ondansetron HCl 4 mg 07/23/21 22:24 Ondansetron 4 Mg/2 Ml Inj IV Q8H PRN Nausea And Vomiting Oxycodone/Acetaminophen 1 tab 07/23/21 22:24 07/27/21 21:23 Oxycodone /Acetaminophen 5-325mg Tab PO 1 tab Q6H PRN Administration Pain, Moderate (4-6) Sodium Chloride 10 ml 07/24/21 10:00 07/28/21 23:13 Sodium Chloride 0.9% 10 Ml Flush Syringe IV 10 ml BID RUSSEL Administration Sodium Chloride 10 ml 07/23/21 22:24 Sodium Chloride 0.9% 10 Ml Flush Syringe IV PRN PRN LINE FLUSH Sodium Chloride 50 ml 07/25/21 14:00 07/28/21 23:11 Sodium Chloride 0.9% 50 Ml Ivpb IV 07/29/21 21:01 50 ml Q24HR@2100 RUSSEL Administration
[2021-07-29] MEDS: FAMOTIDINE 20 MG TAB PO SCH ×2 (09:09→21:54)
[2021-07-29] MEDS: dexAMETHasone 4 MG/ML VIAL IV SCH (09:09)
--- NOTE | 2021-07-29 11:51 | Progress Note ---
Assessment and Plan Cultures: Blood culture no growth so far COVID: positive A/P: 41-year-old female past medical history hypertension admitted with COVID-19 pneumonia #Severe COVID-19 pneumonia: Patient presented with a week of symptoms, chest x- ray with diffuse bilateral infiltrates, admission O2 sats decreased on room air. Inflammatory markers elevated #Acute hypoxemic respiratory failure: Likely secondary to COVID-19 infection. Currently on 10L [place] #Obesity Recs: -Dexamethasone 6 mg IV/PO daily for 10 days -Remdesivir 200 mg IV q day x 1 followed by 100 mg IV q day x 4 days. Tested positive 10 days previous. At the border of clinical utility. -Given elevated CRP if requiring HFNC >30L/min would give Actemra once. -Obtain q48-72h inflammatory markers - ferritin, Ddimer, CRP, LDH -Stopped antibiotics due to normal procalcitonin. -Anticoagulation per hospital protocol -Proning as able Thank you for the consult, we will continue to follow. Eric Tapia MD [facility] ([facility] O: [phone] F: [phone] Subjective Date of service: 07/29/21 Interval history: Afebrile, normal white count. Stable O2 requirements. Objective - Exam Narrative Exam: Physical exam deferred to reduce risk of transmission of COVID-19. Please refer to primary team's note. - Constitutional Vitals: Vital Signs Temp Pulse Resp BP Pulse Ox 97.3 F L 60 20 115/72 92 07/29/21 05:56 07/29/21 05:56 07/29/21 05:56 07/29/21 05:56 07/29/21 08:46 Temperature -Last 24 Hours Temperature 97.3 F Temperature 97.3 F - Labs CBC & Chem 7: 07/27/21 06:20 07/29/21 06:55 Labs: Abnormal lab results 07/29/21 Range/Units 06:55 Creatinine 0.4 L (0.6-1.2) mg/dL Glucose 113 H (65-100) mg/dL
[2021-07-29] MEDS: REMDESIVIR 100 MG in SODIUM CHLORIDE 0.9% 250ML 250 ML IV SCH (21:53)
[2021-07-29] MEDS: SODIUM CHLORIDE 0.9% 50 ML IVPB IV SCH (21:53)
[2021-07-29] MEDS: MELATONIN 5 MG TAB PO SCH (21:54)
[2021-07-29] MEDS: ENOXAPARIN 40 MG/0.4 ML INJ SUB-Q SCH (21:54)
--- NOTE | 2021-07-30 07:20 | Progress Note ---
Assessment and Plan Assessment and plan: 41-year-old female with history of hypertension who presented with progressive worsening shortness of breath, chills and productive cough secondary to previously diagnosed COVID-19. Was found to have acute hypoxic respiratory failure secondary to COVID pneumonia. #COVID-19 pneumonia #Acute hypoxic respiratory failure -Currently on 8 L high flow nasal cannula -Goal O2 greater than 92%, will wean as tolerated -home O2 walk test pending -encouraged self pronation -continue Decadron 6 mg x 10 days (last day 08/02) -s/p remdesivir; Actemra x1 #Hypertension -normotensive, will continue to monitor #GERD -continue PPI Disposition Plan: Home with family Total Time Spent with Patient (Minutes): 20 minutes History Interval history: No acute events overnight. Patient communicated with via daughter on phone at patient's preference. She denies chest pain, worsening shortness of breath. She does have a non-productive cough. Hospitalist Physical - Physical exam Narrative exam: GENERAL: Well-developed well-nourished. Sitting up in bed, in no acute distress. HEENT: Nasal cannula at 8L/min CHEST/LUNGS: Coarse breath sounds bilaterally. No increased work of breathing HEART/CARDIOVASCULAR: RRR. No murmur, rubs or gallops appreciated. ABDOMEN: +BS. NT/ND. EXTREMITIES: No cyanosis, clubbing or edema. PSYCH: Cooperative. - Constitutional Vitals: Temp Pulse Resp BP Pulse Ox 98.2 F 43 L 18 112/59 100 07/30/21 06:49 07/30/21 06:49 07/30/21 06:49 07/30/21 06:49 07/30/21 06:49 General appearance: Present: no acute distress, well-nourished, other (Fatigued) Results - Labs CBC & Chem 7: 07/27/21 06:20 07/30/21 06:10 Labs: Laboratory Last Values WBC 7.7 K/mm3 (4.5-11.0) 07/27/21 06:20 RBC 4.49 M/mm3 (3.65-5.03) 07/27/21 06:20 Hgb 13.0 gm/dl (10.1-14.3) 07/27/21 06:20 Hct 39.3 % (30.3-42.9) 07/27/21 06:20 MCV 88 fl (79-97) 07/27/21 06:20 MCH 29 pg (28-32) 07/27/21 06:20 MCHC 33 % (30-34) 07/27/21 06:20 RDW 13.2 % (13.2-15.2) 07/27/21 06:20 Plt Count 287 K/mm3 (140-440) 07/27/21 06:20 Lymph % (Auto) 16.4 % (13.4-35.0) 07/27/21 06:20 [place] % (Auto) 6.5 % (0.0-7.3) 07/27/21 06:20 Eos % (Auto) 0.0 % (0.0-4.3) 07/27/21 06:20 Baso % (Auto) 0.1 % (0.0-1.8) 07/27/21 06:20 Lymph # (Auto) 1.3 K/mm3 (1.2-5.4) 07/27/21 06:20 [place] # (Auto) 0.5 K/mm3 (0.0-0.8) 07/27/21 06:20 Eos # (Auto) 0.0 K/mm3 (0.0-0.4) 07/27/21 06:20 Baso # (Auto) 0.0 K/mm3 (0.0-0.1) 07/27/21 06:20 Seg Neutrophils % 77.0 % (40.0-70.0) H 07/27/21 06:20 Seg Neutrophils # 5.9 K/mm3 (1.8-7.7) 07/27/21 06:20 D-Dimer 306.17 ng/mlDDU (0-234) H 07/28/21 05:40 ABG pH 7.431 pH Units (7.350-7.450) 07/24/21 Unknown ABG pCO2 36.9 mm Hg 07/24/21 Unknown ABG pO2 64.0 mm Hg (80.0-90.0) L 07/24/21 Unknown ABG HCO3 24.0 mmol/L (20.0-26.0) 07/24/21 Unknown ABG O2 Saturation 94.3 % (95.0-99.0) L 07/24/21 Unknown ABG O2 Content 17.4 (0.0-44) 07/24/21 Unknown ABG Base Excess 0.0 mmol/L (-2.0-3.0) 07/24/21 Unknown ABG Hemoglobin 13.3 gm/dl (12.0-16.0) 07/24/21 Unknown ABG Carboxyhemoglobin 1.0 % (0.0-5.0) 07/24/21 Unknown ABG Methemoglobin 0.6 % (0.0-1.5) 07/24/21 Unknown Oxyhemoglobin 92.7 % (95.0-99.0) L 07/24/21 Unknown FiO2 32 % 07/24/21 Unknown Sodium 138 mmol/L (137-145) 07/29/21 06:55 Potassium 3.9 mmol/L (3.6-5.0) 07/29/21 06:55 Chloride 101.0 mmol/L (98-107) 07/29/21 06:55 Carbon Dioxide 24 mmol/L (22-30) 07/29/21 06:55 Anion Gap 17 mmol/L 07/29/21 06:55 BUN 16 mg/dL (7-17) 07/29/21 06:55 Creatinine 0.4 mg/dL (0.6-1.2) L 07/29/21 06:55 Estimated GFR > 60 ml/min 07/29/21 06:55 BUN/Creatinine Ratio 40 % 07/29/21 06:55 Glucose 113 mg/dL (65-100) H 07/29/21 06:55 Lactic Acid 1.40 mmol/L (0.7-2.0) 07/23/21 13:43 Calcium 8.5 mg/dL (8.4-10.2) 07/29/21 06:55 Phosphorus 2.80 mg/dL (2.5-4.5) 07/26/21 06:50 Magnesium 2.20 mg/dL (1.7-2.3) 07/26/21 06:50 Ferritin 738.1 ng/mL (10.0-200.0) H 07/28/21 05:40 Total Bilirubin 0.40 mg/dL (0.1-1.2) 07/28/21 05:40 AST 26 units/L (5-40) 07/28/21 05:40 ALT 74 units/L (7-56) H 07/28/21 05:40 Alkaline Phosphatase 78 units/L (35-129) 07/28/21 05:40 Lactate Dehydrogenase 264 units/L (91-180) H 07/23/21 17:56 C-Reactive Protein 1.40 mg/dL (0.00-1.30) H 07/28/21 05:40 Total Protein 7.0 g/dL (6.3-8.2) 07/28/21 05:40 Albumin 3.5 g/dL (3.9-5) L 07/28/21 05:40 Albumin/Globulin Ratio 1.0 % 07/28/21 05:40 Procalcitonin < 0.05 ng/mL (<0.15) 07/23/21 17:56 Urine Color Yellow (Yellow) 07/23/21 Unknown Urine Turbidity Clear (Clear) 07/23/21 Unknown Urine pH 8.0 (5.0-7.0) H 07/23/21 Unknown Ur Specific Delia 1.010 (1.003-1.030) 07/23/21 Unknown Urine Protein 30 mg/dl mg/dL (Negative) 07/23/21 Unknown Urine Glucose (UA) Neg mg/dL (Negative) 07/23/21 Unknown Urine Ketones Neg mg/dL (Negative) 07/23/21 Unknown Urine Blood Neg (Negative) 07/23/21 Unknown Urine Nitrite Neg (Negative) 07/23/21 Unknown Urine Bilirubin Neg (Negative) 07/23/21 Unknown Urine Urobilinogen < 2.0 mg/dL (<2.0) 07/23/21 Unknown Ur Leukocyte Esterase Neg (Negative) 07/23/21 Unknown Urine WBC (Auto) < 1.0 /HPF (0.0-6.0) 07/23/21 Unknown Urine RBC (Auto) 7.0 /HPF (0.0-6.0) 07/23/21 Unknown U Epithel Cells (Auto) 3.0 /HPF (0-13.0) 07/23/21 Unknown Hyaline Casts 2 /LPF 07/23/21 Unknown Urine Mucus Few /HPF 07/23/21 Unknown Coronavirus (PCR) Positive (Negative) A 07/24/21 07:55 Mack/IV: Voiding Method Bedside Commode Active Medications - Current Medications Current Medications: Generic Name Dose Route Start Last Admin Trade Name Freq PRN Reason Stop Dose Admin Acetaminophen 650 mg 07/23/21 22:24 07/27/21 06:54 Acetaminophen 325 Mg Tab PO 650 mg Q4H PRN Administration Pain MILD(1-3)/Fever >100.5/GONZALES Benzonatate 100 mg 07/25/21 14:35 07/26/21 19:28 Benzonatate 100 Mg Cap PO 100 mg Q8HR PRN Administration Cough Dexamethasone 6 mg 07/24/21 10:00 07/29/21 09:09 Dexamethasone 4 Mg/Ml Vial IV 08/01/21 10:01 6 mg Q24HR RUSSEL Administration Enoxaparin Sodium 40 mg 07/23/21 22:00 07/29/21 21:54 Enoxaparin 40 Mg/0.4 Ml Inj SUB-Q 40 mg QDAY@2200 RUSSEL Administration Protocol Famotidine 20 mg 07/24/21 22:00 07/29/21 21:54 Famotidine 20 Mg Tab PO 20 mg BID RUSSEL Administration Hydromorphone HCl 0.5 mg 07/23/21 22:24 Hydromorphone 1 Mg/1 Ml Inj IV Q3H PRN Pain , Severe (7-10) Melatonin 5 mg 07/27/21 22:00 07/29/21 21:54 Melatonin 5 Mg Tab PO 5 mg QHS RUSSEL Administration Metoclopramide HCl 10 mg 07/23/21 22:24 Metoclopramide 10 Mg/2 Ml Inj IV Q6H PRN Nausea And Vomiting Naloxone HCl 0.1 mg 07/23/21 22:24 Naloxone 0.4 Mg/1 Ml Inj IV Q2MIN PRN Res Rate </= 8 or 02 SAT < 92% Ondansetron HCl 4 mg 07/23/21 22:24 Ondansetron 4 Mg/2 Ml Inj IV Q8H PRN Nausea And Vomiting Oxycodone/Acetaminophen 1 tab 07/23/21 22:24 07/27/21 21:23 Oxycodone /Acetaminophen 5-325mg Tab PO 1 tab Q6H PRN Administration Pain, Moderate (4-6) Sodium Chloride 10 ml 07/24/21 10:00 07/29/21 21:54 Sodium Chloride 0.9% 10 Ml Flush Syringe IV 10 ml BID RUSSEL Administration Sodium Chloride 10 ml 07/23/21 22:24 Sodium Chloride 0.9% 10 Ml Flush Syringe IV PRN PRN LINE FLUSH
[2021-07-30 07:42] LABS: Blood Urea Nitrogen 14 mg/dL (7-17); Calcium 8.8 mg/dL (8.4-10.2); Hemolysis Index 17
[2021-07-30 07:43] LABS: BUN/Creatinine Ratio 35
[2021-07-30] MEDS: FAMOTIDINE 20 MG TAB PO SCH ×2 (12:40→21:35)
[2021-07-30] MEDS: dexAMETHasone 4 MG/ML VIAL IV SCH (12:40)
--- NOTE | 2021-07-30 14:00 | Progress Note ---
Assessment and Plan Cultures: Blood culture no growth so far COVID: positive A/P: 41-year-old female past medical history hypertension admitted with COVID-19 pneumonia #Severe COVID-19 pneumonia: Patient presented with a week of symptoms, chest x- ray with diffuse bilateral infiltrates, admission O2 sats decreased on room air. Inflammatory markers elevated #Acute hypoxemic respiratory failure: Likely secondary to COVID-19 infection. Currently on 10L [place] #Obesity Recs: -Dexamethasone 6 mg IV/PO daily for 10 days -Compelted 5 days remdesivir. -Obtain q48-72h inflammatory markers - ferritin, Ddimer, CRP, LDH -No need for antibiotics. -Anticoagulation per hospital protocol -Proning as able Thank you for the consult, we will continue to follow. Eric Tapia MD [facility] ([facility] C: [phone] O: [phone] F: [phone] Subjective Date of service: 07/30/21 Interval history: Afebrile, normal white count. Stable O2 requirements. Objective - Exam Narrative Exam: Physical exam deferred to reduce risk of transmission of COVID-19. Please refer to primary team's note. - Constitutional Vitals: Vital Signs Temp Pulse Resp BP Pulse Ox 97.6 F 57 L 18 103/62 89 07/30/21 12:39 07/30/21 12:39 07/30/21 12:39 07/30/21 12:39 07/30/21 12:39 Temperature -Last 24 Hours Temperature 97.6 F Temperature 97.6 F Temperature 98.2 F Temperature 98.0 F Temperature 97.6 F - Labs CBC & Chem 7: 07/27/21 06:20 07/30/21 06:10 Labs: Abnormal lab results 07/30/21 07/30/21 07/30/21 Range/Units 06:10 07:29 10:40 Sodium 136 L (137-145) mmol/L Creatinine 0.4 L (0.6-1.2) mg/dL Glucose 117 H (65-100) mg/dL POC Glucose 131 H 111 H (70-105) mg/dL
[2021-07-30] MEDS: oxyCODONE /ACETAMINOPHEN 5-325MG TAB PO PRN (21:31)
[2021-07-30] MEDS: MELATONIN 5 MG TAB PO SCH (21:31)
[2021-07-30] MEDS: ENOXAPARIN 40 MG/0.4 ML INJ SUB-Q SCH (21:34)
[2021-07-31 06:35] VITALS: BP 108/60
--- NOTE | 2021-07-31 10:27 | Progress Note ---
Assessment and Plan Cultures: Blood culture no growth so far COVID: positive A/P: 41-year-old female past medical history hypertension admitted with COVID-19 pneumonia #Severe COVID-19 pneumonia: Patient presented with a week of symptoms, chest x- ray with diffuse bilateral infiltrates, admission O2 sats decreased on room air. Inflammatory markers elevated #Acute hypoxemic respiratory failure: Likely secondary to COVID-19 infection. Currently on room air. #Obesity Recs: -Dexamethasone 6 mg IV/PO daily for 10 days -Compelted 5 days remdesivir. -Obtain q48-72h inflammatory markers - ferritin, Ddimer, CRP, LDH -No need for antibiotics. -Anticoagulation per hospital protocol -Proning as able Thank you for the consult, we will sign off. Please call questions. Eric Tapia MD [facility] ([facility]) C: [phone] O: [phone] F: [phone] Subjective Date of service: 07/31/21 Interval history: Afebrile, now on room air. Objective - Exam Narrative Exam: Physical exam deferred to reduce risk of transmission of COVID-19. Please refer to primary team's note. - Constitutional Vitals: Vital Signs Temp Pulse Resp BP Pulse Ox 98.3 F 46 L 18 108/60 93 07/31/21 06:13 07/31/21 06:13 07/31/21 06:13 07/31/21 06:13 07/31/21 06:13 Temperature -Last 24 Hours Temperature 98.3 F Temperature 97.6 F Temperature 98.0 F Temperature 97.6 F Temperature 97.6 F - Labs CBC & Chem 7: 07/27/21 06:20 07/30/21 06:10 Labs: Abnormal lab results 07/30/21 07/30/21 07/30/21 Range/Units 10:40 14:56 21:22 POC Glucose 111 H 186 H 132 H (70-105) mg/dL
[2021-07-31] MEDS: dexAMETHasone 4 MG/ML VIAL IV SCH (11:07)
[2021-07-31] MEDS: FAMOTIDINE 20 MG TAB PO SCH (11:07)
--- NOTE | 2021-07-31 14:28 | Discharge Summary ---
Providers - Providers Date of Admission: 07/23/21 17:51 Attending physician: JONATHAN FIGUEROA MD 07/25/21 07:29 Consult to Physician [CONS] Routine Comment: Consulting Provider: SHREYA LAGUERRE Physician Instructions: Reason For Exam: Administration of remdesivir Primary care physician: [facility] Hospitalization Condition: Stable Disposition: 30 STILL A PATIENT Exam - Constitutional Vitals: Temp Pulse Resp BP Pulse Ox 98.3 F 46 L 18 108/60 88 07/31/21 06:13 07/31/21 06:13 07/31/21 06:13 07/31/21 06:13 07/31/21 11:26 Plan Care Plan Goals: Follow up with your primary care doctor. Complete the steriods as directed on the prescription bottle. If your oxygen levels fall below 90% continuously, please go to the emergency room. Follow up with: PRIMARY CAREMD [Primary Care Provider] - 7 Days Prescriptions: Dexamethasone [Decadron] 6 mg PO DAILY 2 Days #2 tablet Benzonatate [Tessalon Perles] 100 mg PO Q8HR PRN 10 Days #30 capsule PRN Reason: Cough
== END 2021-07-31 17:34 | disposition home or self-care (01) | DRG 177 ==
LOC: ED 13:18 → 3A 17:51
PROVIDERS: ADMIT Internal Medicine; ATTEND Student in an Organized Health Care Education/Training Program
PROC: XW033E5 Introduction of Remdesivir Anti-infective into Peripheral Vein, Percutaneous Approach, New Technology Group 5 (ICD-10-PCS; principal; 2021-07-25)
DX: U07.1 COVID-19 (principal); J96.01 Acute respiratory failure with hypoxia; J12.82 Pneumonia due to coronavirus disease 2019; R65.10 Systemic inflammatory response syndrome (SIRS) of non-infectious origin without acute organ dysfunction; I10 Essential (primary) hypertension; E66.9 Obesity, unspecified; K21.9 Gastro-esophageal reflux disease without esophagitis; Z82.49 Family history of ischemic heart disease and other diseases of the circulatory system; Z86.79 Personal history of other diseases of the circulatory system; Z68.32 Body mass index [BMI] 32.0-32.9, adult
CPT/HCPCS: 36415; 71046; 71275; 80048; 80053; 81001; 82140; 82728; 82803; 82947; 82962; 83615; 83735; 84100; 84145; 85025; 85379; 86140; 87040; 94760; G0378; J0456; J0610; J0696; J1100; J1650; J7030; J7050; Q9967; U0003